=== PATIENT | female | born 1980 | race Caucasian/White ===

== ENCOUNTER 2017-08-03 21:55 | Emergency (ER) | payer MEDICAID, OTHER ==
[2017-08-03] MEDS: IBUPROFEN 800 MG TAB PO (23:47)
[2017-08-03] MEDS: METHOCARBAMOL 500 MG TAB PO (23:47)
[2017-08-03] MEDS: NORCO, ANEXSIA 5/325MG TABLET (HYDROcodone/ACETAMINOPHEN) PO (23:48)
== END 2017-08-04 00:04 | disposition home or self-care (01) ==
LOC: M ED 08-04 00:04
DX: M54.17 Radiculopathy, lumbosacral region (principal); M54.42 Lumbago with sciatica, left side
CPT/HCPCS: 99282

== ENCOUNTER → 2017-10-11 | Outpatient (REF) | payer MEDICAID ==
[2017-10-11 19:09] LABS: ALBUMIN 3.8 GM/DL (3.2-5.2); ALKALINE PHOSPHATASE 82 U/L (45-117); ALT/SGPT 20 U/L (12-78); ANION GAP 6 MEQ/L (8-16); AST/SGOT 15 U/L (7-37); BILIRUBIN,TOTAL 0.4 MG/DL (0.2-1.0); BLOOD UREA NITROGEN 16 MG/DL (7-18); CALCIUM LEVEL 8.6 MG/DL (8.5-10.1); CARBON DIOXIDE LEVEL 28 MEQ/L (21-32); CHLORIDE LEVEL 107 MEQ/L (98-107); GLOMERULAR FILTRATION RATE > 60.0 (>60); GLUCOSE, FASTING 94 MG/DL (70-100); POTASSIUM SERUM 4.5 MEQ/L (3.5-5.1); SODIUM LEVEL 141 MEQ/L (136-145)
[2017-10-11 19:53] LABS: BASO % 0.5 % (0.0-1.0); EOS # 0.2 10^3/uL (0.0-0.50); EOS % 2.7 % (0.0-3.0); HEMATOCRIT 35.5 % (36.0-47.0); HEMOGLOBIN 11.8 g/dl (12.0-15.5); IMMATURE GRANULOCYTE % 0.5 % (0-3.0); LYMPH # 1.5 10^3/uL (1.5-4.5); MEAN CORPUSCULAR HEMOGLOBIN 28.1 pg (27.0-33.0); MEAN CORPUSCULAR HGB CONC 33.2 g/dl (32.0-36.5); MEAN CORPUSCULAR VOLUME 84.5 fl (80.0-96.0); MONO # 0.4 10^3/uL (0.0-0.8); MONO % 5.6 % (0.0-5.0); NEUTROPHILS # 4.6 10^3/uL (1.8-7.7); NEUTROPHILS % 68.7 % (36.0-66.0); PLATELET COUNT, AUTOMATED 243 10^3/uL (150-450); RED CELL DISTRIBUTION WIDTH 14.3 % (11.5-14.5); WHITE BLOOD COUNT 6.6 10^3/uL (4.0-10.0)
[2017-10-11 20:46] LABS: SLIDE REVIEW Report; SOURCE PERIPHERAL SMEAR
[2017-10-11 20:47] LABS: REASON FOR REVIEW RBC MORPHOLOGY
== END ==
LOC: M LAB REF 18:22
DX: R16.1 Splenomegaly, not elsewhere classified (principal)
CPT/HCPCS: 80053

== ENCOUNTER 2017-12-01 18:00 | Emergency (ER) | payer MEDICAID, OTHER, SELFPAY ==
[2017-12-01] MEDS: ONDANSETRON 4MG/2ML VIAL (J2405) IV (19:29)
[2017-12-01] MEDS: CLINDAMYCIN 900 MG in APPROPRIATE DILUENT 1 EA IV (19:29)
[2017-12-01] MEDS: NS 1,000 ML IV (19:29)
[2017-12-01] MEDS: KETOROLAC 30 MG/ML VIAL (J1885) IV (19:30)
[2017-12-01 19:42] LABS: BASO % 0.4 % (0.0-1.0); EOS # 0.2 10^3/uL (0.0-0.50); EOS % 2.3 % (0.0-3.0); HEMATOCRIT 37.1 % (36.0-47.0); HEMOGLOBIN 12.5 g/dl (12.0-15.5); IMMATURE GRANULOCYTE % 0.4 % (0-3.0); LYMPH # 1.7 10^3/uL (1.5-4.5); LYMPH % 20.4 % (24.0-44.0); MEAN CORPUSCULAR HEMOGLOBIN 28.9 pg (27.0-33.0); MEAN CORPUSCULAR HGB CONC 33.7 g/dl (32.0-36.5); MEAN CORPUSCULAR VOLUME 85.7 fl (80.0-96.0); MONO # 0.5 10^3/uL (0.0-0.8); MONO % 6.5 % (0.0-5.0); NEUTROPHILS # 5.9 10^3/uL (1.8-7.7); PLATELET COUNT, AUTOMATED 261 10^3/uL (150-450); RED BLOOD COUNT 4.33 10^6/uL (4.00-5.40); WHITE BLOOD COUNT 8.4 10^3/uL (4.0-10.0)
[2017-12-01 19:54] LABS: ANION GAP 6 MEQ/L (8-16); BLOOD UREA NITROGEN 17 MG/DL (7-18); C REACTIVE PROTEIN QUANTITATIV 0.66 MG/DL (0.00-0.30); CALCIUM LEVEL 8.7 MG/DL (8.5-10.1); CARBON DIOXIDE LEVEL 29 MEQ/L (21-32); CHLORIDE LEVEL 107 MEQ/L (98-107); CREATININE FOR GFR 1.08 MG/DL (0.55-1.30); GLOMERULAR FILTRATION RATE > 60.0 (>60); GLUCOSE, FASTING 100 MG/DL (70-100); POTASSIUM SERUM 4.2 MEQ/L (3.5-5.1); SODIUM LEVEL 142 MEQ/L (136-145)
[2017-12-01] MEDS ORDERED: ISOVUE-370 76% 100ML VIAL (Q9967) As Ordered (20:00)
[2017-12-01] MEDS: OXYCODONE/APAP 5MG/325MG(BULK FOR ED) 1 TABLET PO (21:53)
== END 2017-12-01 21:56 | disposition home or self-care (01) ==
LOC: M ED 18:00
DX: K04.7 Periapical abscess without sinus (principal)
CPT/HCPCS: J2405

== ENCOUNTER → 2017-12-14 | Outpatient (REF) | payer MEDICAID, OTHER | LOC: M LAB REF 10:44 | DX: R16.1 Splenomegaly, not elsewhere classified (principal) ==

== ENCOUNTER → 2018-01-03 | Outpatient (REF) | payer MEDICAID ==
[2018-01-03 20:20] LABS: ESTIMATED AVERAGE GLUCOSE 88 MG/DL (60-110); HEMOGLOBIN A1c 4.7 %
[2018-01-03 20:25] LABS: CHOLESTEROL LEVEL 128 MG/DL (<200); HDL CHOLESTEROL 27 MG/DL (>40); LDL CHOLESTEROL 34 MG/DL (<100); NON-HDL-C 101 MG/DL; TRIGLYCERIDES LEVEL 335 MG/DL (<150)
== END ==
LOC: M LAB REF 18:33
DX: E66.01 Morbid (severe) obesity due to excess calories (principal)
CPT/HCPCS: 84443

== ENCOUNTER → 2018-01-17 | Outpatient (CLI) | payer MEDICARE, OTHER ==
[~2018-01-17] MED LIST: GASTROGRAFIN SOLUTION 30ML (Q9963) As Ordered; ISOVUE-370 76% 100ML VIAL (Q9967) As Ordered
== END ==
LOC: M RAD 07:51
DX: R16.1 Splenomegaly, not elsewhere classified (principal)
CPT/HCPCS: Q9963

== ENCOUNTER → 2018-05-22 | Outpatient (REF) | payer OTHER, MEDICAID ==
[~2018-05-22] MED LIST changes: +APAP325T4 PO; +CLEO300C2 PO; -GASTROGRAFIN SOLUTION 30ML (Q9963) As Ordered; +IBUP80TA PO; -ISOVUE-370 76% 100ML VIAL (Q9967) As Ordered; +KETO10TAB PO; +MOTR200T44 PO; +NORCOTAB PO; +PERC5TAB12 PO; +PERCOCET PO; +ROBA500T PO; +VITAPRTA PO; +ZONI25CA2 PO; +ZONI50CA3 PO
== END ==
LOC: M LAB REF 11:55
PROVIDERS: ATTEND Internal Medicine
DX: N39.0 Urinary tract infection, site not specified (principal)

== ENCOUNTER 2022-03-29 19:25 | Emergency (ER) | payer MEDICAID, OTHER ==
[~2022-03-29] VITALS: Ht 152.4 cm; Wt 136.3 kg
[~2022-03-29 19:25] MED LIST changes: +HYDR-3715 PO; -NORCOTAB PO; +ZONI25CA13 PO; -ZONI25CA2 PO; +ZONI50CA11 PO; -ZONI50CA3 PO
[2022-03-29 23:28] LABS: LIPASE 46 U/L (12-53)
[2022-03-29 23:30] LABS: ALBUMIN 3.8 G/DL (3.2-5.2); ALKALINE PHOSPHATASE 85 U/L (46-116); ALT/SGPT 20 U/L (7.0-40); AST/SGOT 34 U/L (<34); BILIRUBIN,DIRECT < 0.1 MG/DL (<0.4); BILIRUBIN,TOTAL 0.4 MG/DL (0.3-1.2); BLOOD UREA NITROGEN 22 MG/DL (9-23); CALCIUM LEVEL 9.5 MG/DL (8.5-10.1); CARBON DIOXIDE LEVEL 23 MMOL/L (20-31); CHLORIDE LEVEL 104 MMOL/L (98-107); GLOMERULAR FILTRATION RATE > 60.0 (>58); GLUCOSE, FASTING 128 MG/DL (60-100); POTASSIUM SERUM 4.3 MMOL/L (3.5-5.1); SODIUM LEVEL 140 MMOL/L (136-145); TOTAL PROTEIN 7.2 G/DL (5.7-8.2)
[2022-03-29 23:46] LABS: BASO % 0.3 % (0.0-1.0); EOS # 0.1 10^3/uL (0.0-0.5); EOS % 1.1 % (0.0-3.0); HEMATOCRIT 36.9 % (36.0-47.0); HEMOGLOBIN 11.9 g/dl (12.0-15.5); LYMPH # 3.3 10^3/uL (1.5-5.0); LYMPH % 25.3 % (24.0-44.0); MEAN CORPUSCULAR HEMOGLOBIN 28.6 pg (27.0-33.0); MEAN CORPUSCULAR HGB CONC 32.2 g/dl (32.0-36.5); MEAN CORPUSCULAR VOLUME 88.7 fl (80.0-96.0); MONO # 0.9 10^3/uL (0.0-0.8); MONO % 6.9 % (2.0-8.0); NEUTROPHILS # 8.6 10^3/uL (1.5-8.5); PLATELET COUNT, AUTOMATED 471 10^3/uL (150-450); RED BLOOD COUNT 4.16 10^6/uL (4.00-5.40); WHITE BLOOD COUNT 13.1 10^3/uL (4.0-10.0)
[2022-03-30 00:02] LABS: HCG, SERUM QUALITATIVE NEGATIVE (NEGATIVE)
[2022-03-30] MEDS ORDERED: ONDANSETRON 4MG ORAL DISINTEGRATING TAB PO ONE (00:25)
[2022-03-30] MEDS ORDERED: PRED20TA PO (03:39)
[2022-03-30] MEDS ORDERED: CYMB1CAP4 PO (03:39)
[2022-03-30] MEDS ORDERED: OXYCODONE/APAP 5MG/325MG(HOME DOSE PACK) PO ONE (03:40)
[2022-03-30] MEDS ORDERED: predniSONE 20 MG TAB PO ONE (03:40)
[2022-03-30] MEDS ORDERED: DULoxetine 20MG CAP (CYMBALTA) PO ONE (03:40)
[2022-03-30 03:42] VITALS: BP 132/88
== END 2022-03-30 04:01 | disposition home or self-care (01) ==
LOC: M ED 19:25
DX: Z76.0 Encounter for issue of repeat prescription (principal); M06.9 Rheumatoid arthritis, unspecified; F32.A Depression, unspecified; Z88.0 Allergy status to penicillin; Z79.82 Long term (current) use of aspirin; Z79.83 Long term (current) use of bisphosphonates; Z79.899 Other long term (current) drug therapy
CPT/HCPCS: 36415; 80048; 80076; 83690; 84703; 85025; 87428; 87880; 93005; 99284; J7512

== ENCOUNTER → 2022-04-20 | Outpatient (REF) | payer MEDICAID ==
[~2022-04-20] MED LIST changes: +CYMB1CAP4 PO; +PRED20TA PO
[2022-04-20 17:23] LABS: BASO % 0.4 % (0.0-1.0); EOS # 0.2 10^3/uL (0.0-0.5); EOS % 3.3 % (0.0-3.0); HEMATOCRIT 30.7 % (36.0-47.0); HEMOGLOBIN 9.3 g/dl (12.0-15.5); LYMPH # 1.2 10^3/uL (1.5-5.0); LYMPH % 23.2 % (24.0-44.0); MEAN CORPUSCULAR HEMOGLOBIN 27.4 pg (27.0-33.0); MEAN CORPUSCULAR HGB CONC 30.3 g/dl (32.0-36.5); MEAN CORPUSCULAR VOLUME 90.3 fl (80.0-96.0); MONO # 0.4 10^3/uL (0.0-0.8); NEUTROPHILS # 3.4 10^3/uL (1.5-8.5); NEUTROPHILS % 65.9 % (36.0-66.0); PLATELET COUNT, AUTOMATED 351 10^3/uL (150-450); WHITE BLOOD COUNT 5.1 10^3/uL (4.0-10.0)
[2022-04-20 17:53] LABS: ALBUMIN 3.2 G/DL (3.2-5.2); ALKALINE PHOSPHATASE 83 U/L (46-116); ALT/SGPT 21 U/L (7.0-40); AST/SGOT 24 U/L (<34); BILIRUBIN,TOTAL 0.8 MG/DL (0.3-1.2); BLOOD UREA NITROGEN 9 MG/DL (9-23); CALCIUM LEVEL 8.8 MG/DL (8.5-10.1); CARBON DIOXIDE LEVEL 25 MMOL/L (20-31); CHLORIDE LEVEL 102 MMOL/L (98-107); CREATININE FOR GFR 0.77 MG/DL (0.55-1.30); GLOMERULAR FILTRATION RATE > 60.0 (>58); GLUCOSE, FASTING 108 MG/DL (60-100); POTASSIUM SERUM 3.5 MMOL/L (3.5-5.1); RHEUMATOID FACTOR QUANT 66.3 IU/ML (<14); SODIUM LEVEL 139 MMOL/L (136-145); TOTAL PROTEIN 6.5 G/DL (5.7-8.2)
[2022-04-20 18:19] LABS: HIV 1&2 SCREEN CENTAUR NEGATIVE (NEGATIVE)
[2022-04-20 18:26] LABS: ERYTHROCYTE SEDIMENTATION RATE 51 mm/hr (0-20)
[2022-04-20 18:28] LABS: HEPATITIS C VIRUS ABY INDEX 0.1 INDEX (<0.8)
== END ==
LOC: M LAB REF 16:18
PROVIDERS: ATTEND Physician Assistant
DX: M06.9 Rheumatoid arthritis, unspecified (principal); M25.50 Pain in unspecified joint; R20.2 Paresthesia of skin; Z11.4 Encounter for screening for human immunodeficiency virus [HIV]; Z11.59 Encounter for screening for other viral diseases

== ENCOUNTER → 2022-05-20 | Outpatient (CLI) | payer MEDICAID | LOC: M WUC 13:32 | PROVIDERS: ATTEND Physician Assistant | DX: M17.11 Unilateral primary osteoarthritis, right knee (principal) ==

== ENCOUNTER 2022-06-05 14:58 | Inpatient (IN) | payer MEDICAID, OTHER ==
[~2022-06-05] VITALS: Ht 152.4 cm; Wt 122.5 kg
[2022-06-05] MEDS ORDERED: ADV250INH PO (15:14)
[2022-06-05] MEDS ORDERED: OXYC20TA2 PO (15:14)
[2022-06-05] MEDS ORDERED: ZOLP5TAB PO (15:14)
[2022-06-05] MEDS ORDERED: PREG200C PO (15:14)
[2022-06-05] MEDS: HYDROMORPHONE HCL 0.5 MG/ 0.5 ML SYRINGE IV PRN ×2 (16:05→20:53)
[2022-06-05 16:19] LABS: BASO % 0.3 % (0.0-1.0); EOS # 0.1 10^3/uL (0.0-0.5); EOS % 1.5 % (0.0-3.0); HEMATOCRIT 32.2 % (36.0-47.0); HEMOGLOBIN 10.2 g/dl (12.0-15.5); LYMPH # 1.1 10^3/uL (1.5-5.0); LYMPH % 16.7 % (24.0-44.0); MEAN CORPUSCULAR HEMOGLOBIN 27.4 pg (27.0-33.0); MEAN CORPUSCULAR HGB CONC 31.7 g/dl (32.0-36.5); MEAN CORPUSCULAR VOLUME 86.6 fl (80.0-96.0); MONO # 0.3 10^3/uL (0.0-0.8); MONO % 4.7 % (2.0-8.0); NEUTROPHILS % 76.3 % (36.0-66.0); RED BLOOD COUNT 3.72 10^6/uL (4.00-5.40); WHITE BLOOD COUNT 6.6 10^3/uL (4.0-10.0)
[2022-06-05 16:39] LABS: LIPASE 27 U/L (12-53)
[2022-06-05 16:40] LABS: INR 0.97; PARTIAL THROMBOPLASTIN TIME 24.1 SECONDS (24.8-34.2); PROTHROMBIN TIME 13.1 SECONDS (12.5-14.5)
[2022-06-05 16:41] LABS: ALBUMIN 3.3 G/DL (3.2-5.2); ALKALINE PHOSPHATASE 83 U/L (46-116); ALT/SGPT 16 U/L (7.0-40); AST/SGOT 39 U/L (<34); BILIRUBIN,DIRECT 0.2 MG/DL (<0.4); BILIRUBIN,TOTAL 0.6 MG/DL (0.3-1.2); BLOOD UREA NITROGEN 10 MG/DL (9-23); CALCIUM LEVEL 8.4 MG/DL (8.5-10.1); CARBON DIOXIDE LEVEL 25 MMOL/L (20-31); CHLORIDE LEVEL 107 MMOL/L (98-107); CREATININE FOR GFR 0.66 MG/DL (0.55-1.30); GLOMERULAR FILTRATION RATE > 60.0 (>58); GLUCOSE, FASTING 104 MG/DL (60-100); POTASSIUM SERUM 4.5 MMOL/L (3.5-5.1); SODIUM LEVEL 141 MMOL/L (136-145); TOTAL PROTEIN 7.3 G/DL (5.7-8.2)
[2022-06-05 16:42] LABS: RSV AMPLIFICATION NEGATIVE (NEGATIVE)
[2022-06-05] MEDS ORDERED: ALBU8.5H PO (20:16)
[2022-06-05] MEDS ORDERED: DULO1CAP5 PO (20:16)
[2022-06-05] MEDS ORDERED: FLUTISP (20:16)
[2022-06-05] MEDS ORDERED: HOME MED LIST COMPLETE! XX SCH (20:20)
[2022-06-05] MEDS ORDERED: ACETAMINOPHEN TAB 650MG DOSE (2X325MG) PO PRN (22:40)
[2022-06-05 23:03] VITALS: BP 128/84
[2022-06-05] MEDS: KETOROLAC 30 MG/ML 1ML VIAL IV PRN (23:25)
[2022-06-06] MEDS ORDERED: ALBUTEROL 90 MCG/ACT 8GM HFA INHALER INH PRN (01:00)
[2022-06-06 02:59] LABS: APPEARANCE, URINE HAZY (CLEAR); BACTERIA, URINE AUTO NEGATIVE (NEGATIVE); BILIRUBIN, URINE AUTO NEGATIVE (NEGATIVE); BLOOD, URINE BLOOD NEGATIVE (NEGATIVE); COLOR, URINE YELLOW (YELLOW); GLUCOSE, URINE (UA) AUTO 1+ mg/dL (NEGATIVE); KETONE, URINE AUTO TRACE mg/dL (NEGATIVE); LEUKOCYTE ESTERASE, URINE AUTO NEGATIVE (NEGATIVE); MUCUS, URINE SMALL (NEGATIVE); NITRITE, URINE AUTO NEGATIVE (NEGATIVE); PROTEIN, URINE AUTO 2+ mg/dL (NEGATIVE); RBC, URINE AUTO 20 /HPF (0-3); SPECIFIC GRAVITY URINE AUTO 1.021 (1.002-1.035); SQUAMOUS EPITHELIAL CELL UR AU 5 /HPF (0-6); WBC, URINE AUTO 4 /HPF (0-3)
[2022-06-06 06:26] VITALS: BP 123/71
[2022-06-06 06:51] LABS: BLOOD UREA NITROGEN 15 MG/DL (9-23); CALCIUM LEVEL 8.5 MG/DL (8.5-10.1); CARBON DIOXIDE LEVEL 26 MMOL/L (20-31); CHLORIDE LEVEL 107 MMOL/L (98-107); CREATININE FOR GFR 0.66 MG/DL (0.55-1.30); GLOMERULAR FILTRATION RATE > 60.0 (>58); GLUCOSE, FASTING 158 MG/DL (60-100); POTASSIUM SERUM 4.5 MMOL/L (3.5-5.1); SODIUM LEVEL 141 MMOL/L (136-145)
[2022-06-06] MEDS: LIDOCAINE 5% (LIDODERM) PATCH TOP SCH (08:38)
[2022-06-06] MEDS: ENOXAPARIN 40MG/0.4ML SYRINGE (J1650 PER 10MG) SC SCH (08:38)
[2022-06-06] MEDS: KETOROLAC 30 MG/ML 1ML VIAL IV PRN ×3 (08:44→20:48)
[2022-06-06] MEDS: methylPREDNISolone 40MG 1ML VIAL IV SCH (13:02)
[2022-06-06 14:00] VITALS: BP 118/69
[2022-06-06 18:53] LABS: RHEUMATOID FACTOR QUANT 81.2 IU/ML (<14)
[2022-06-06 20:00] VITALS: BP 120/68
[2022-06-06] MEDS: DOCUSATE SODIUM 100MG CAPSULE PO SCH (20:48)
[2022-06-06] MEDS: SENOKOT S TAB PO PRN (20:48)
[2022-06-07] MEDS: KETOROLAC 30 MG/ML 1ML VIAL IV PRN ×3 (02:23→19:54)
[2022-06-07 06:00] VITALS: BP 119/64
[2022-06-07 06:37] LABS: HEMATOCRIT 27.3 % (36.0-47.0); HEMOGLOBIN 8.4 g/dl (12.0-15.5); LYMPH # 0.9 10^3/uL (1.5-5.0); LYMPH % 13.1 % (24.0-44.0); MEAN CORPUSCULAR HEMOGLOBIN 27.2 pg (27.0-33.0); MEAN CORPUSCULAR HGB CONC 30.8 g/dl (32.0-36.5); MEAN CORPUSCULAR VOLUME 88.3 fl (80.0-96.0); MONO # 0.4 10^3/uL (0.0-0.8); MONO % 5.3 % (2.0-8.0); NEUTROPHILS # 5.5 10^3/uL (1.5-8.5); NEUTROPHILS % 80.7 % (36.0-66.0); PLATELET COUNT, AUTOMATED 261 10^3/uL (150-450); RED BLOOD COUNT 3.09 10^6/uL (4.00-5.40); WHITE BLOOD COUNT 6.8 10^3/uL (4.0-10.0)
[2022-06-07 06:59] LABS: ALBUMIN 2.8 G/DL (3.2-5.2); ALKALINE PHOSPHATASE 62 U/L (46-116); ALT/SGPT 9 U/L (7.0-40); AST/SGOT < 8 U/L (<34); BILIRUBIN,TOTAL 0.3 MG/DL (0.3-1.2); BLOOD UREA NITROGEN 27 MG/DL (9-23); CALCIUM LEVEL 8.3 MG/DL (8.5-10.1); CARBON DIOXIDE LEVEL 26 MMOL/L (20-31); CHLORIDE LEVEL 110 MMOL/L (98-107); CREATININE FOR GFR 0.73 MG/DL (0.55-1.30); GLOMERULAR FILTRATION RATE > 60.0 (>58); GLUCOSE, FASTING 127 MG/DL (60-100); MAGNESIUM LEVEL 2.1 MG/DL (1.8-2.4); POTASSIUM SERUM 4.5 MMOL/L (3.5-5.1); SODIUM LEVEL 144 MMOL/L (136-145); TOTAL PROTEIN 6.1 G/DL (5.7-8.2)
[2022-06-07] MEDS: MIRALAX *UNIT DOSE* 17GM PACKET PO SCH (09:33)
[2022-06-07] MEDS: DOCUSATE SODIUM 100MG CAPSULE PO SCH ×2 (09:33→19:54)
[2022-06-07] MEDS: LIDOCAINE 5% (LIDODERM) PATCH TOP SCH (09:33)
[2022-06-07] MEDS: PANTOPRAZOLE 40MG TAB (PROTONIX) PO SCH (09:34)
[2022-06-07] MEDS: ENOXAPARIN 40MG/0.4ML SYRINGE (J1650 PER 10MG) SC SCH (09:34)
[2022-06-07] MEDS: methylPREDNISolone 40MG 1ML VIAL IV SCH (11:55)
[2022-06-07] MEDS ORDERED: LORazepam 1 MG TAB PO ONE (12:10)
[2022-06-07 14:00] VITALS: BP 113/64
[2022-06-07 20:00] VITALS: BP 122/65
[2022-06-08 06:07] VITALS: BP 121/68
[2022-06-08 07:35] LABS: BASO % 0.3 % (0.0-1.0); EOS % 0.1 % (0.0-3.0); HEMATOCRIT 28.6 % (36.0-47.0); HEMOGLOBIN 8.7 g/dl (12.0-15.5); LYMPH # 1.5 10^3/uL (1.5-5.0); LYMPH % 21.3 % (24.0-44.0); MEAN CORPUSCULAR HEMOGLOBIN 26.9 pg (27.0-33.0); MEAN CORPUSCULAR HGB CONC 30.4 g/dl (32.0-36.5); MEAN CORPUSCULAR VOLUME 88.5 fl (80.0-96.0); MONO # 0.4 10^3/uL (0.0-0.8); MONO % 6.3 % (2.0-8.0); NEUTROPHILS # 4.8 10^3/uL (1.5-8.5); NEUTROPHILS % 70.5 % (36.0-66.0); PLATELET COUNT, AUTOMATED 252 10^3/uL (150-450); RED BLOOD COUNT 3.23 10^6/uL (4.00-5.40); WHITE BLOOD COUNT 6.8 10^3/uL (4.0-10.0)
[2022-06-08 08:02] LABS: ALBUMIN 2.8 G/DL (3.2-5.2); ALKALINE PHOSPHATASE 63 U/L (46-116); ALT/SGPT 12 U/L (7.0-40); AST/SGOT < 8 U/L (<34); BILIRUBIN,TOTAL 0.2 MG/DL (0.3-1.2); BLOOD UREA NITROGEN 29 MG/DL (9-23); CALCIUM LEVEL 8.2 MG/DL (8.5-10.1); CARBON DIOXIDE LEVEL 26 MMOL/L (20-31); CHLORIDE LEVEL 111 MMOL/L (98-107); CREATININE FOR GFR 0.71 MG/DL (0.55-1.30); GLOMERULAR FILTRATION RATE > 60.0 (>58); GLUCOSE, FASTING 106 MG/DL (60-100); MAGNESIUM LEVEL 1.9 MG/DL (1.8-2.4); SODIUM LEVEL 145 MMOL/L (136-145); TOTAL PROTEIN 5.9 G/DL (5.7-8.2)
[2022-06-08] MEDS: DOCUSATE SODIUM 100MG CAPSULE PO SCH ×2 (08:40→20:09)
[2022-06-08] MEDS: MIRALAX *UNIT DOSE* 17GM PACKET PO SCH (08:40)
[2022-06-08] MEDS ORDERED: LORazepam 1 MG TAB PO ONE (09:15)
[2022-06-08] MEDS: KETOROLAC 30 MG/ML 1ML VIAL IV PRN ×2 (09:36→23:02)
[2022-06-08] MEDS: PANTOPRAZOLE 40MG TAB (PROTONIX) PO SCH (09:36)
[2022-06-08] MEDS: ENOXAPARIN 40MG/0.4ML SYRINGE (J1650 PER 10MG) SC SCH (09:36)
[2022-06-08] MEDS ORDERED: PROHANCE 279.3MG/ML 5ML VIAL As Ordered ONE (10:46)
[2022-06-08] MEDS ORDERED: PROHANCE 279.3MG/ML 15ML VIAL As Ordered ONE (10:46)
[2022-06-08] MEDS: LIDOCAINE 5% (LIDODERM) PATCH TOP SCH ×2 (12:24→18:05)
[2022-06-08] MEDS: methylPREDNISolone 40MG 1ML VIAL IV SCH (12:24)
[2022-06-08 14:00] VITALS: BP 131/71
[2022-06-08 19:06] LABS: CPK CREATINE PHOSPHOKINASE < 15 U/L (34-145); RHEUMATOID FACTOR QUANT 81.4 IU/ML (<14)
[2022-06-08 20:00] VITALS: BP 139/69
[2022-06-09 05:43] VITALS: BP 123/71
[2022-06-09 06:13] LABS: BASO % 0.1 % (0.0-1.0); EOS % 0.1 % (0.0-3.0); HEMATOCRIT 29.6 % (36.0-47.0); HEMOGLOBIN 9.1 g/dl (12.0-15.5); LYMPH # 1.6 10^3/uL (1.5-5.0); LYMPH % 18.2 % (24.0-44.0); MEAN CORPUSCULAR HEMOGLOBIN 26.6 pg (27.0-33.0); MEAN CORPUSCULAR HGB CONC 30.7 g/dl (32.0-36.5); MEAN CORPUSCULAR VOLUME 86.5 fl (80.0-96.0); MONO # 0.5 10^3/uL (0.0-0.8); MONO % 6.1 % (2.0-8.0); NEUTROPHILS # 6.4 10^3/uL (1.5-8.5); NEUTROPHILS % 73.9 % (36.0-66.0); PLATELET COUNT, AUTOMATED 274 10^3/uL (150-450); RED BLOOD COUNT 3.42 10^6/uL (4.00-5.40); WHITE BLOOD COUNT 8.7 10^3/uL (4.0-10.0)
[2022-06-09 06:40] LABS: ALKALINE PHOSPHATASE 66 U/L (46-116); ALT/SGPT < 9 U/L (7.0-40); AST/SGOT 9 U/L (<34); BILIRUBIN,TOTAL 0.2 MG/DL (0.3-1.2); BLOOD UREA NITROGEN 29 MG/DL (9-23); CALCIUM LEVEL 8.6 MG/DL (8.5-10.1); CARBON DIOXIDE LEVEL 26 MMOL/L (20-31); CHLORIDE LEVEL 107 MMOL/L (98-107); CREATININE FOR GFR 0.79 MG/DL (0.55-1.30); GLOMERULAR FILTRATION RATE > 60.0 (>58); GLUCOSE, FASTING 93 MG/DL (60-100); POTASSIUM SERUM 4.3 MMOL/L (3.5-5.1); SODIUM LEVEL 141 MMOL/L (136-145); TOTAL PROTEIN 6.1 G/DL (5.7-8.2)
[2022-06-09] MEDS: DOCUSATE SODIUM 100MG CAPSULE PO SCH ×2 (08:37→21:38)
[2022-06-09] MEDS: PANTOPRAZOLE 40MG TAB (PROTONIX) PO SCH (08:37)
[2022-06-09] MEDS: MIRALAX *UNIT DOSE* 17GM PACKET PO SCH (08:37)
[2022-06-09] MEDS: LIDOCAINE 5% (LIDODERM) PATCH TOP SCH (08:38)
[2022-06-09] MEDS: methylPREDNISolone 40MG 1ML VIAL IV SCH (12:24)
[2022-06-09 13:06] LABS: APPEARANCE, CSF CLEAR (CLEAR); COLOR, CSF COLORLESS (COLORLESS); CSF TUBE# CELL CNT TUBE 1
[2022-06-09 13:08] LABS: APPEARANCE, CSF CLEAR (CLEAR); COLOR, CSF COLORLESS (COLORLESS); CSF TUBE# CELL CNT TUBE 4
[2022-06-09 13:34] LABS: CSF TUBE# TP TUBE 2; TOTAL PROTEIN,CSF 32.1 MG/DL (15-45)
[2022-06-09 13:37] LABS: CSF TUBE# GLU TUBE 2
[2022-06-09 14:00] VITALS: BP 116/73
[2022-06-09 15:00] VITALS: BP 118/73
[2022-06-09] MEDS: KETOROLAC 30 MG/ML 1ML VIAL IV PRN (16:15)
[2022-06-09 20:00] VITALS: BP 117/72
[2022-06-09 23:07] LABS: ANTI DNASE B TITER 250 U/mL (0-120); ANTINUCLEAR ANTIBODIES DIRECT Negative (Negative); COPPER PLASMA 176 ug/dL (80-158); SJOGREN'S ANTI SS-A <0.2 AI (0.0-0.9); SJOGREN'S ANTI SS-B <0.2 AI (0.0-0.9); VITAMIN B1 LEVEL WHOLE BLOOD 112.3 nmol/L (66.5-200.0)
[2022-06-10] MEDS: KETOROLAC 30 MG/ML 1ML VIAL IV PRN ×3 (00:41→22:40)
[2022-06-10 06:39] VITALS: BP 114/73
[2022-06-10 07:13] LABS: BASO % 0.2 % (0.0-1.0); EOS % 0.3 % (0.0-3.0); HEMATOCRIT 30.9 % (36.0-47.0); HEMOGLOBIN 9.5 g/dl (12.0-15.5); LYMPH # 1.7 10^3/uL (1.5-5.0); LYMPH % 19.3 % (24.0-44.0); MEAN CORPUSCULAR HEMOGLOBIN 26.5 pg (27.0-33.0); MEAN CORPUSCULAR HGB CONC 30.7 g/dl (32.0-36.5); MEAN CORPUSCULAR VOLUME 86.3 fl (80.0-96.0); MONO # 0.5 10^3/uL (0.0-0.8); MONO % 5.9 % (2.0-8.0); NEUTROPHILS # 6.4 10^3/uL (1.5-8.5); NEUTROPHILS % 72.8 % (36.0-66.0); PLATELET COUNT, AUTOMATED 277 10^3/uL (150-450); RED BLOOD COUNT 3.58 10^6/uL (4.00-5.40); WHITE BLOOD COUNT 8.9 10^3/uL (4.0-10.0)
[2022-06-10 07:39] LABS: ALKALINE PHOSPHATASE 68 U/L (46-116); ALT/SGPT 10 U/L (7.0-40); AST/SGOT < 8 U/L (<34); BILIRUBIN,TOTAL 0.3 MG/DL (0.3-1.2); BLOOD UREA NITROGEN 30 MG/DL (9-23); CALCIUM LEVEL 8.4 MG/DL (8.5-10.1); CARBON DIOXIDE LEVEL 30 MMOL/L (20-31); CHLORIDE LEVEL 107 MMOL/L (98-107); CREATININE FOR GFR 0.75 MG/DL (0.55-1.30); GLOMERULAR FILTRATION RATE > 60.0 (>58); GLUCOSE, FASTING 83 MG/DL (60-100); MAGNESIUM LEVEL 2.1 MG/DL (1.8-2.4); POTASSIUM SERUM 4.2 MMOL/L (3.5-5.1); SODIUM LEVEL 142 MMOL/L (136-145)
[2022-06-10] MEDS: MIRALAX *UNIT DOSE* 17GM PACKET PO SCH (08:21)
[2022-06-10] MEDS: DOCUSATE SODIUM 100MG CAPSULE PO SCH ×3 (08:21→20:10)
[2022-06-10] MEDS: LIDOCAINE 5% (LIDODERM) PATCH TOP SCH (08:21)
[2022-06-10] MEDS: PANTOPRAZOLE 40MG TAB (PROTONIX) PO SCH (08:22)
[2022-06-10] MEDS: ENOXAPARIN 40MG/0.4ML SYRINGE (J1650 PER 10MG) SC SCH (09:56)
[2022-06-10] MEDS: methylPREDNISolone 40MG 1ML VIAL IV SCH (11:42)
[2022-06-10 14:00] VITALS: BP 138/91
[2022-06-10 20:40] VITALS: BP 105/61
[2022-06-10] MEDS ORDERED: GABAPENTIN 100 MG CAP PO SCH (21:00)
[2022-06-11 05:50] VITALS: BP 106/62
[2022-06-11 06:40] LABS: BASO % 0.2 % (0.0-1.0); EOS % 0.2 % (0.0-3.0); HEMATOCRIT 33.8 % (36.0-47.0); HEMOGLOBIN 10.4 g/dl (12.0-15.5); LYMPH # 1.9 10^3/uL (1.5-5.0); LYMPH % 14.3 % (24.0-44.0); MEAN CORPUSCULAR HEMOGLOBIN 27.1 pg (27.0-33.0); MEAN CORPUSCULAR HGB CONC 30.8 g/dl (32.0-36.5); MONO # 0.7 10^3/uL (0.0-0.8); MONO % 5.6 % (2.0-8.0); NEUTROPHILS # 10.3 10^3/uL (1.5-8.5); NEUTROPHILS % 78.5 % (36.0-66.0); PLATELET COUNT, AUTOMATED 331 10^3/uL (150-450); RED BLOOD COUNT 3.84 10^6/uL (4.00-5.40); WHITE BLOOD COUNT 13.1 10^3/uL (4.0-10.0)
[2022-06-11 06:59] LABS: ALBUMIN 3.1 G/DL (3.2-5.2); ALKALINE PHOSPHATASE 82 U/L (46-116); ALT/SGPT 10 U/L (7.0-40); AST/SGOT < 8 U/L (<34); BILIRUBIN,TOTAL 0.3 MG/DL (0.3-1.2); BLOOD UREA NITROGEN 33 MG/DL (9-23); CALCIUM LEVEL 8.7 MG/DL (8.5-10.1); CARBON DIOXIDE LEVEL 27 MMOL/L (20-31); CHLORIDE LEVEL 106 MMOL/L (98-107); CREATININE FOR GFR 0.76 MG/DL (0.55-1.30); GLOMERULAR FILTRATION RATE > 60.0 (>58); GLUCOSE, FASTING 125 MG/DL (60-100); MAGNESIUM LEVEL 2.1 MG/DL (1.8-2.4); POTASSIUM SERUM 4.1 MMOL/L (3.5-5.1); SODIUM LEVEL 141 MMOL/L (136-145); TOTAL PROTEIN 6.3 G/DL (5.7-8.2)
[2022-06-11 07:10] LABS: ERYTHROCYTE SEDIMENTATION RATE 36 mm/hr (0-20)
[2022-06-11] MEDS: MIRALAX *UNIT DOSE* 17GM PACKET PO SCH (08:43)
[2022-06-11] MEDS: LIDOCAINE 5% (LIDODERM) PATCH TOP SCH ×2 (08:47→08:50)
[2022-06-11] MEDS: PREGABALIN 100 MG CAP (LYRICA) PO SCH ×3 (08:47→20:25)
[2022-06-11] MEDS: ENOXAPARIN 40MG/0.4ML SYRINGE (J1650 PER 10MG) SC SCH (08:47)
[2022-06-11] MEDS: PANTOPRAZOLE 40MG TAB (PROTONIX) PO SCH (08:48)
[2022-06-11] MEDS: DOCUSATE SODIUM 100MG CAPSULE PO SCH ×2 (08:48→20:25)
[2022-06-11] MEDS: predniSONE 20 MG TAB PO SCH (08:48)
[2022-06-11] MEDS: KETOROLAC 30 MG/ML 1ML VIAL IV PRN (11:46)
[2022-06-11 15:00] VITALS: BP 137/79
[2022-06-11 20:00] VITALS: BP 135/79
[2022-06-11] MEDS ORDERED: oxyCODONE 5MG TAB PO ONE (23:00)
[2022-06-12 05:55] VITALS: BP 124/75
[2022-06-12 05:59] LABS: BASO % 0.2 % (0.0-1.0); EOS # 0.1 10^3/uL (0.0-0.5); EOS % 0.4 % (0.0-3.0); HEMOGLOBIN 9.8 g/dl (12.0-15.5); LYMPH # 2.4 10^3/uL (1.5-5.0); LYMPH % 19.3 % (24.0-44.0); MEAN CORPUSCULAR HEMOGLOBIN 26.6 pg (27.0-33.0); MEAN CORPUSCULAR HGB CONC 30.6 g/dl (32.0-36.5); MONO # 0.9 10^3/uL (0.0-0.8); MONO % 7.5 % (2.0-8.0); NEUTROPHILS # 8.7 10^3/uL (1.5-8.5); NEUTROPHILS % 70.9 % (36.0-66.0); PLATELET COUNT, AUTOMATED 319 10^3/uL (150-450); RED BLOOD COUNT 3.68 10^6/uL (4.00-5.40); WHITE BLOOD COUNT 12.3 10^3/uL (4.0-10.0)
[2022-06-12 06:25] LABS: ALBUMIN 3.1 G/DL (3.2-5.2); ALKALINE PHOSPHATASE 86 U/L (46-116); ALT/SGPT 9 U/L (7.0-40); AST/SGOT < 8 U/L (<34); BILIRUBIN,TOTAL 0.2 MG/DL (0.3-1.2); BLOOD UREA NITROGEN 27 MG/DL (9-23); CALCIUM LEVEL 8.3 MG/DL (8.5-10.1); CARBON DIOXIDE LEVEL 26 MMOL/L (20-31); CHLORIDE LEVEL 106 MMOL/L (98-107); CREATININE FOR GFR 0.71 MG/DL (0.55-1.30); GLOMERULAR FILTRATION RATE > 60.0 (>58); GLUCOSE, FASTING 105 MG/DL (60-100); MAGNESIUM LEVEL 1.8 MG/DL (1.8-2.4); POTASSIUM SERUM 4.2 MMOL/L (3.5-5.1); SODIUM LEVEL 140 MMOL/L (136-145); TOTAL PROTEIN 6.3 G/DL (5.7-8.2)
[2022-06-12] MEDS: MIRALAX *UNIT DOSE* 17GM PACKET PO SCH (09:00)
[2022-06-12] MEDS: LIDOCAINE 5% (LIDODERM) PATCH TOP SCH ×2 (09:16→12:08)
[2022-06-12] MEDS: ENOXAPARIN 40MG/0.4ML SYRINGE (J1650 PER 10MG) SC SCH (09:16)
[2022-06-12] MEDS: predniSONE 20 MG TAB PO SCH (09:16)
[2022-06-12] MEDS: PREGABALIN 100 MG CAP (LYRICA) PO SCH ×3 (09:16→20:30)
[2022-06-12] MEDS: DOCUSATE SODIUM 100MG CAPSULE PO SCH ×2 (09:17→20:30)
[2022-06-12] MEDS: PANTOPRAZOLE 40MG TAB (PROTONIX) PO SCH (09:17)
[2022-06-12 14:00] VITALS: BP 131/80
[2022-06-12] MEDS: oxyCODONE 5MG TAB PO SCH ×2 (15:06→20:31)
[2022-06-12 20:00] VITALS: BP 126/80
[2022-06-13 06:19] VITALS: BP 128/79
[2022-06-13 06:57] LABS: BASO % 0.3 % (0.0-1.0); EOS # 0.1 10^3/uL (0.0-0.5); EOS % 0.5 % (0.0-3.0); HEMATOCRIT 32.9 % (36.0-47.0); HEMOGLOBIN 10.3 g/dl (12.0-15.5); LYMPH # 3.1 10^3/uL (1.5-5.0); LYMPH % 20.5 % (24.0-44.0); MEAN CORPUSCULAR HGB CONC 31.3 g/dl (32.0-36.5); MEAN CORPUSCULAR VOLUME 86.1 fl (80.0-96.0); MONO # 1.1 10^3/uL (0.0-0.8); MONO % 7.4 % (2.0-8.0); NEUTROPHILS # 10.5 10^3/uL (1.5-8.5); NEUTROPHILS % 69.3 % (36.0-66.0); PLATELET COUNT, AUTOMATED 356 10^3/uL (150-450); RED BLOOD COUNT 3.82 10^6/uL (4.00-5.40); WHITE BLOOD COUNT 15.2 10^3/uL (4.0-10.0)
[2022-06-13 07:27] LABS: ALBUMIN 3.1 G/DL (3.2-5.2); ALKALINE PHOSPHATASE 83 U/L (46-116); ALT/SGPT < 9 U/L (7.0-40); AST/SGOT < 8 U/L (<34); BILIRUBIN,TOTAL 0.3 MG/DL (0.3-1.2); BLOOD UREA NITROGEN 25 MG/DL (9-23); CALCIUM LEVEL 8.3 MG/DL (8.5-10.1); CARBON DIOXIDE LEVEL 27 MMOL/L (20-31); CHLORIDE LEVEL 102 MMOL/L (98-107); GLOMERULAR FILTRATION RATE > 60.0 (>58); GLUCOSE, FASTING 100 MG/DL (60-100); MAGNESIUM LEVEL 1.7 MG/DL (1.8-2.4); POTASSIUM SERUM 3.7 MMOL/L (3.5-5.1); SODIUM LEVEL 136 MMOL/L (136-145); TOTAL PROTEIN 6.3 G/DL (5.7-8.2)
[2022-06-13] MEDS: ENOXAPARIN 40MG/0.4ML SYRINGE (J1650 PER 10MG) SC SCH (08:50)
[2022-06-13] MEDS: oxyCODONE 5MG TAB PO SCH ×3 (08:50→20:23)
[2022-06-13] MEDS: predniSONE 20 MG TAB PO SCH (08:51)
[2022-06-13] MEDS: DOCUSATE SODIUM 100MG CAPSULE PO SCH ×2 (08:51→20:22)
[2022-06-13] MEDS: PREGABALIN 100 MG CAP (LYRICA) PO SCH ×3 (08:51→20:22)
[2022-06-13] MEDS: MIRALAX *UNIT DOSE* 17GM PACKET PO SCH (08:51)
[2022-06-13] MEDS: PANTOPRAZOLE 40MG TAB (PROTONIX) PO SCH (08:51)
[2022-06-13] MEDS: LIDOCAINE 5% (LIDODERM) PATCH TOP SCH (12:24)
[2022-06-13] MEDS: SENOKOT S TAB PO PRN (20:29)
[2022-06-14 06:00] VITALS: BP 137/65
[2022-06-14 07:45] VITALS: BP 132/68
[2022-06-14] MEDS: MIRALAX *UNIT DOSE* 17GM PACKET PO SCH (09:00)
[2022-06-14] MEDS: DOCUSATE SODIUM 100MG CAPSULE PO SCH ×2 (09:04→20:40)
[2022-06-14] MEDS: predniSONE 20 MG TAB PO SCH (09:04)
[2022-06-14] MEDS: PANTOPRAZOLE 40MG TAB (PROTONIX) PO SCH (09:04)
[2022-06-14] MEDS: LIDOCAINE 5% (LIDODERM) PATCH TOP SCH (09:05)
[2022-06-14] MEDS: ENOXAPARIN 40MG/0.4ML SYRINGE (J1650 PER 10MG) SC SCH (09:06)
[2022-06-14] MEDS: PREGABALIN 100 MG CAP (LYRICA) PO SCH ×3 (09:46→20:40)
[2022-06-14] MEDS: oxyCODONE 5MG TAB PO SCH ×3 (09:47→20:43)
[2022-06-14 14:50] VITALS: BP 130/89
[2022-06-15 05:24] VITALS: BP 117/69
[2022-06-15] MEDS: MIRALAX *UNIT DOSE* 17GM PACKET PO SCH (09:00)
[2022-06-15] MEDS: ENOXAPARIN 40MG/0.4ML SYRINGE (J1650 PER 10MG) SC SCH (09:00)
[2022-06-15] MEDS: PANTOPRAZOLE 40MG TAB (PROTONIX) PO SCH (09:23)
[2022-06-15] MEDS: PREGABALIN 100 MG CAP (LYRICA) PO SCH (09:23)
[2022-06-15] MEDS: predniSONE 20 MG TAB PO SCH (09:23)
[2022-06-15] MEDS: DOCUSATE SODIUM 100MG CAPSULE PO SCH (09:23)
[2022-06-15] MEDS: LIDOCAINE 5% (LIDODERM) PATCH TOP SCH (09:24)
[2022-06-15] MEDS: oxyCODONE 5MG TAB PO SCH (09:24)
[2022-06-15] MEDS ORDERED: ACET1TAB55 PO (10:43)
[2022-06-15] MEDS ORDERED: OXYC20TA2 PO (10:43)
[2022-06-15] MEDS ORDERED: LIDO5TD TOP (10:43)
[2022-06-15] MEDS ORDERED: MIRA1POW3 PO (10:43)
[2022-06-15] MEDS ORDERED: COLA100C5 PO (10:43)
[2022-06-15] MEDS ORDERED: PRED20TA PO (10:44)
[2022-06-15] MEDS ORDERED: OXYB5TAB10 PO (10:44)
[2022-06-15] MEDS ORDERED: NARC1SPR NARES (10:48)
[2022-06-15] MEDS ORDERED: LIDO1CRE2 TOP (11:47)
[2022-06-15] MEDS ORDERED: MIRA3350 PO (11:47)
[2022-06-15] MEDS ORDERED: PRED10TA2 PO ×2 (17:50→17:53)
== END 2022-06-15 14:03 | disposition home or self-care (01) | DRG 40 ==
LOC: M ED 14:58 → M ED INP 20:16 → M MSPAV 23:02
PROVIDERS: ADMIT Internal Medicine; ATTEND Student in an Organized Health Care Education/Training Program
PROC: 009U3ZX Drainage of Spinal Canal, Percutaneous Approach, Diagnostic (ICD-10-PCS; principal; 2022-06-09 10:30)
DX: G82.20 Paraplegia, unspecified (principal); E87.20 Acidosis, unspecified; Z68.43 Body mass index [BMI] 50.0-59.9, adult; E66.01 Morbid (severe) obesity due to excess calories; J45.909 Unspecified asthma, uncomplicated; F32.A Depression, unspecified; M06.9 Rheumatoid arthritis, unspecified; G89.29 Other chronic pain; Z88.0 Allergy status to penicillin; Z79.899 Other long term (current) drug therapy; G62.9 Polyneuropathy, unspecified

== ENCOUNTER → 2022-07-29 | Outpatient (CLI) | payer OTHER, MEDICAID ==
[~2022-07-29] MED LIST changes: +ACET1TAB55 PO; +ADV250INH PO; +ALBU8.5H PO; +COLA100C5 PO; +DULO1CAP5 PO; +FLUT50SP17; +LIDO1CRE2 TOP; +LIDO5TD TOP; +MIRA1POW3 PO; +MIRA3350 PO; +NARC1SPR NARES; +OXYB5TAB10 PO; +OXYC20TA2 PO; +PRED10TA2 PO; +PREG200C PO; +ZOLP5TAB PO
== END ==
LOC: M SOG 08:09
PROVIDERS: ATTEND Orthopaedic Surgery
DX: M17.12 Unilateral primary osteoarthritis, left knee (principal)

== ENCOUNTER → 2022-08-03 | Outpatient (CLI) | payer MEDICAID, OTHER ==
[2022-08-03 14:32] LABS: BASO % 0.2 % (0.0-1.0); EOS # 0.1 10^3/uL (0.0-0.5); EOS % 2.2 % (0.0-3.0); HEMATOCRIT 28.1 % (36.0-47.0); HEMOGLOBIN 8.7 g/dl (12.0-15.5); LYMPH # 1.1 10^3/uL (1.5-5.0); LYMPH % 17.3 % (24.0-44.0); MEAN CORPUSCULAR HEMOGLOBIN 25.6 pg (27.0-33.0); MEAN CORPUSCULAR VOLUME 82.6 fl (80.0-96.0); MONO # 0.4 10^3/uL (0.0-0.8); MONO % 6.9 % (2.0-8.0); NEUTROPHILS # 4.6 10^3/uL (1.5-8.5); NEUTROPHILS % 72.9 % (36.0-66.0); PLATELET COUNT, AUTOMATED 287 10^3/uL (150-450); WHITE BLOOD COUNT 6.3 10^3/uL (4.0-10.0)
[2022-08-03 14:38] LABS: COMPLEMENT C3 167.3 MG/DL (90.0-170.0); IMMUNOGLOBULIN A 279.9 MG/DL (40-350); IMMUNOGLOBULIN G 1135 MG/DL (650-1600); IMMUNOGLOBULIN M 105.7 MG/DL (50-300)
[2022-08-03 14:39] LABS: ALBUMIN 3.2 G/DL (3.2-5.2); ALKALINE PHOSPHATASE 79 U/L (46-116); ALT/SGPT 17 U/L (7.0-40); AST/SGOT 20 U/L (<34); BILIRUBIN,TOTAL 0.6 MG/DL (0.3-1.2); BLOOD UREA NITROGEN 8 MG/DL (9-23); CALCIUM LEVEL 8.4 MG/DL (8.5-10.1); CARBON DIOXIDE LEVEL 26 MMOL/L (20-31); CHLORIDE LEVEL 102 MMOL/L (98-107); GLOMERULAR FILTRATION RATE > 60.0 (>58); GLUCOSE, FASTING 132 MG/DL (60-100); POTASSIUM SERUM 3.6 MMOL/L (3.5-5.1); SODIUM LEVEL 137 MMOL/L (136-145); TOTAL PROTEIN 6.3 G/DL (5.7-8.2)
[2022-08-03 14:59] LABS: HEPATITIS B SURFACE ANTIGEN NEGATIVE (NEGATIVE)
[2022-08-03 15:19] LABS: HEPATITIS B CORE ANTIBODY IGM NEGATIVE (NEGATIVE); HEPATITIS C VIRUS ABY INDEX 0.1 INDEX (<0.8)
[2022-08-03 15:21] LABS: ERYTHROCYTE SEDIMENTATION RATE 56 mm/hr (0-20)
== END ==
LOC: M RAD 12:18
PROVIDERS: ATTEND Internal Medicine Rheumatology
DX: M05.79 Rheumatoid arthritis with rheumatoid factor of multiple sites without organ or systems involvement (principal); R76.8 Other specified abnormal immunological findings in serum; R06.02 Shortness of breath; M35.00 Sjogren syndrome, unspecified; M19.041 Primary osteoarthritis, right hand; M19.042 Primary osteoarthritis, left hand

== ENCOUNTER → 2022-08-03 | Outpatient (CLI) | payer MEDICAID, OTHER ==
[~2022-08-03] MED LIST changes: +ONDA4TAB6 PO; +OXYC10TA12 PO; +PREG100CA PO
== END ==
LOC: M EKG 12:21
PROVIDERS: ATTEND Physician Assistant
DX: E66.01 Morbid (severe) obesity due to excess calories (principal); Z76.89 Persons encountering health services in other specified circumstances

== ENCOUNTER 2022-08-07 18:47 | Emergency (ER) | payer MEDICAID ==
[~2022-08-07] VITALS: Ht 152.4 cm; Wt 127.3 kg
[~2022-08-07 18:47] MED LIST changes: -ONDA4TAB6 PO; -OXYC10TA12 PO; -PREG100CA PO
[2022-08-07] MEDS ORDERED: NS 1,000 ML IV ONE (19:05)
[2022-08-07] MEDS ORDERED: KETOROLAC 30 MG/ML 1ML VIAL IV ONE ×2 (19:05→20:00)
[2022-08-07] MEDS ORDERED: ONDANSETRON 4MG 2ML VIAL IV ONE (19:05)
[2022-08-07] MEDS: MORPHINE 2 MG/ML 1ML VIAL IV PRN ×2 (19:37→23:29)
[2022-08-07 19:38] LABS: BASO % 0.3 % (0.0-1.0); EOS # 0.1 10^3/uL (0.0-0.5); EOS % 1.5 % (0.0-3.0); HEMATOCRIT 28.8 % (36.0-47.0); LYMPH # 1.3 10^3/uL (1.5-5.0); LYMPH % 21.5 % (24.0-44.0); MEAN CORPUSCULAR HEMOGLOBIN 26.2 pg (27.0-33.0); MEAN CORPUSCULAR HGB CONC 31.3 g/dl (32.0-36.5); MONO # 0.3 10^3/uL (0.0-0.8); MONO % 4.2 % (2.0-8.0); NEUTROPHILS # 4.4 10^3/uL (1.5-8.5); NEUTROPHILS % 70.7 % (36.0-66.0); PLATELET COUNT, AUTOMATED 294 10^3/uL (150-450); RED BLOOD COUNT 3.43 10^6/uL (4.00-5.40); WHITE BLOOD COUNT 6.2 10^3/uL (4.0-10.0)
[2022-08-07 20:00] LABS: LIPASE 48 U/L (12-53)
[2022-08-07 20:02] LABS: ALBUMIN 3.3 G/DL (3.2-5.2); ALKALINE PHOSPHATASE 82 U/L (46-116); ALT/SGPT 12 U/L (7.0-40); AST/SGOT 20 U/L (<34); BILIRUBIN,DIRECT 0.1 MG/DL (<0.4); BILIRUBIN,TOTAL 0.4 MG/DL (0.3-1.2); BLOOD UREA NITROGEN 10 MG/DL (9-23); CALCIUM LEVEL 8.4 MG/DL (8.5-10.1); CARBON DIOXIDE LEVEL 25 MMOL/L (20-31); CHLORIDE LEVEL 111 MMOL/L (98-107); CREATININE FOR GFR 0.71 MG/DL (0.55-1.30); GLOMERULAR FILTRATION RATE > 60.0 (>58); GLUCOSE, FASTING 119 MG/DL (60-100); SODIUM LEVEL 144 MMOL/L (136-145); TOTAL PROTEIN 6.8 G/DL (5.7-8.2)
[2022-08-07] MEDS ORDERED: ISOVUE-370 76% 100ML VIAL As Ordered ONE (20:11)
[2022-08-07 21:57] VITALS: BP 128/62
[2022-08-07] MEDS ORDERED: ONDA4TAB6 PO (22:53)
[2022-08-07] MEDS ORDERED: ONDANSETRON 4MG ORAL DISINTEGRATING TAB PO ONE (22:55)
[2022-08-07] MEDS ORDERED: OXYC20TA2 PO (23:19)
[2022-08-07] MEDS ORDERED: PREG200C PO (23:19)
[2022-08-08] MEDS ORDERED: PREG100CA PO (18:17)
[2022-08-08] MEDS ORDERED: OXYC10TA12 PO (18:17)
== END 2022-08-07 23:45 | disposition home or self-care (01) ==
LOC: M ED 18:47 → EDBD 18:47 → M ED 23:45
DX: N83.202 Unspecified ovarian cyst, left side (principal); R16.0 Hepatomegaly, not elsewhere classified; M06.9 Rheumatoid arthritis, unspecified; J45.909 Unspecified asthma, uncomplicated; Z88.0 Allergy status to penicillin
CPT/HCPCS: 74177; 76856; 80048; 80076; 83605; 83690; 85025; 86850; 86900; 86901; 87040; 87486; 87581; 87633; 87798; 93005; 93041; 93976; 96374; 96375; 96376; 99285; J1885; J2405; Q9967

== ENCOUNTER 2022-08-08 15:00 | Emergency (ER) | payer MEDICAID ==
[~2022-08-08] VITALS: Ht 152.4 cm; Wt 127.3 kg
[~2022-08-08 15:00] MED LIST changes: +ONDA4TAB6 PO
[2022-08-08] MEDS ORDERED: PREGABALIN 100 MG CAP (LYRICA) PO ONE ×2 (15:20→18:20)
[2022-08-08] MEDS ORDERED: oxyCODONE 5MG TAB PO ONE ×2 (15:20→18:20)
[2022-08-08] MEDS ORDERED: ONDANSETRON 4MG ORAL DISINTEGRATING TAB PO ONE ×2 (15:20→18:50)
[2022-08-08] MEDS ORDERED: PREG100CA PO (18:17)
[2022-08-08] MEDS ORDERED: OXYC10TA12 PO (18:17)
[2022-08-08 18:43] VITALS: BP 110/57
== END 2022-08-08 20:06 | disposition home or self-care (01) ==
LOC: EDBD 15:00 → M ED 15:00
DX: F11.23 Opioid dependence with withdrawal (principal); M06.9 Rheumatoid arthritis, unspecified; J45.909 Unspecified asthma, uncomplicated; M54.50 Low back pain, unspecified; Z88.0 Allergy status to penicillin; Z79.52 Long term (current) use of systemic steroids; Z79.83 Long term (current) use of bisphosphonates; Z79.899 Other long term (current) drug therapy

== ENCOUNTER → 2022-09-01 | Outpatient (CLI) | payer MEDICAID, OTHER ==
[~2022-09-01] MED LIST changes: +OXYC10TA12 PO; +PREG100CA PO
== END ==
LOC: M CARPUL 13:27
PROVIDERS: ATTEND Internal Medicine Rheumatology
DX: M05.79 Rheumatoid arthritis with rheumatoid factor of multiple sites without organ or systems involvement (principal); R76.8 Other specified abnormal immunological findings in serum; R06.02 Shortness of breath; M35.00 Sjogren syndrome, unspecified; M15.9 Polyosteoarthritis, unspecified

== ENCOUNTER → 2022-10-13 | Outpatient (CLI) | payer OTHER | LOC: M SOG 07:59 | PROVIDERS: ATTEND Orthopaedic Surgery | DX: M25.511 Pain in right shoulder (principal); Z53.9 Procedure and treatment not carried out, unspecified reason ==

== ENCOUNTER 2022-11-04 13:14 | Emergency (ER) | payer OTHER ==
[~2022-11-04] VITALS: Ht 152.4 cm; Wt 125.0 kg
[2022-11-04] MEDS ORDERED: oxyCODONE 5MG TAB PO ONE (15:45)
[2022-11-04] MEDS ORDERED: PREGABALIN 100 MG CAP (LYRICA) PO ONE (15:45)
[2022-11-04] MEDS ORDERED: GABAPENTIN 100 MG CAP PO ONE (15:45)
[2022-11-04] MEDS ORDERED: PRED5TA PO (16:56)
[2022-11-04 17:14] VITALS: BP 136/69; TEMP 97.2; O2SAT 100
== END 2022-11-04 17:28 | disposition home or self-care (01) ==
LOC: EDBD 13:14 → M ED 13:14
DX: G89.4 Chronic pain syndrome (principal); M06.9 Rheumatoid arthritis, unspecified; M54.50 Low back pain, unspecified; J45.909 Unspecified asthma, uncomplicated; Z79.52 Long term (current) use of systemic steroids; Z79.83 Long term (current) use of bisphosphonates; Z79.899 Other long term (current) drug therapy

== ENCOUNTER → 2022-12-09 | Outpatient (CLI) | payer OTHER ==
[~2022-12-09] MED LIST changes: +PRED5TA PO; -PREG200C PO; +PREG200C2 PO
== END ==
LOC: M SOG 07:52
PROVIDERS: ATTEND Orthopaedic Surgery
DX: M25.511 Pain in right shoulder (principal)

== ENCOUNTER → 2022-12-09 | Outpatient (CLI) | payer OTHER ==
[~2022-12-09] MED LIST changes: +METHACHOLINE KIT INH ONE
== END ==
LOC: M CARPUL 09:20
PROVIDERS: ATTEND Physician Assistant
DX: R06.00 Dyspnea, unspecified (principal)
CPT/HCPCS: 71046; 94070; 95070; J7674

== ENCOUNTER → 2022-12-29 | Outpatient (CLI) | payer OTHER ==
[~2022-12-29] MED LIST changes: +ISOVUE-300 61% 100ML VIAL As Ordered ONE; -METHACHOLINE KIT INH ONE; -OXYB5TAB10 PO; +OXYB5TAB11 PO; +methylPREDNISolone SUSP 40MG/ML 1ML VIAL (DEPO MEDROL) As Ordered ONE
== END ==
LOC: M RAD 12:59
PROVIDERS: ATTEND Orthopaedic Surgery
DX: M05.711 Rheumatoid arthritis with rheumatoid factor of right shoulder without organ or systems involvement (principal)
CPT/HCPCS: 20610; 77002; J0665; J1030; Q9967

== ENCOUNTER → 2023-02-25 | Outpatient (REF) | payer MEDICAID ==
[~2023-02-25] MED LIST changes: -FLUT50SP17; +FLUTISP; -ISOVUE-300 61% 100ML VIAL As Ordered ONE; -methylPREDNISolone SUSP 40MG/ML 1ML VIAL (DEPO MEDROL) As Ordered ONE
[2023-02-25 17:10] LABS: APPEARANCE, URINE HAZY (CLEAR); BACTERIA, URINE AUTO NEGATIVE (NEGATIVE); BILIRUBIN, URINE AUTO NEGATIVE (NEGATIVE); BLOOD, URINE BLOOD NEGATIVE (NEGATIVE); CALCIUM OXALATE CRYSTALS MODERATE; COLOR, URINE YELLOW (YELLOW); GLUCOSE, URINE (UA) AUTO NEGATIVE (NEGATIVE); KETONE, URINE AUTO NEGATIVE (NEGATIVE); LEUKOCYTE ESTERASE, URINE AUTO NEGATIVE (NEGATIVE); MUCUS, URINE SMALL (NEGATIVE); NITRITE, URINE AUTO NEGATIVE (NEGATIVE); PROTEIN, URINE AUTO NEGATIVE (NEGATIVE); RBC, URINE AUTO 0 /HPF (0-3); SQUAMOUS EPITHELIAL CELL UR AU 7 /HPF (0-6); UROBILINOGEN, URINE AUTO 0.2 mg/dL (0.0-2.0); WBC, URINE AUTO 2 /HPF (0-3)
[2023-02-25 17:37] LABS: TOTAL PROTEIN,RANDOM URINE 26.5 MG/DL (0.0-14.0)
== END ==
LOC: M SFHCRHEU 14:11
PROVIDERS: ATTEND Internal Medicine Rheumatology
DX: M05.79 Rheumatoid arthritis with rheumatoid factor of multiple sites without organ or systems involvement (principal); M35.00 Sjogren syndrome, unspecified; M15.9 Polyosteoarthritis, unspecified; R76.8 Other specified abnormal immunological findings in serum; R06.02 Shortness of breath

== ENCOUNTER → 2023-03-07 | Outpatient (REF) | payer MEDICAID, OTHER | LOC: M SFHCRHEU 11:14 | PROVIDERS: ATTEND Internal Medicine Rheumatology | DX: Z53.9 Procedure and treatment not carried out, unspecified reason (principal); M05.79 Rheumatoid arthritis with rheumatoid factor of multiple sites without organ or systems involvement; R76.8 Other specified abnormal immunological findings in serum; R06.02 Shortness of breath; M35.00 Sjogren syndrome, unspecified; M15.9 Polyosteoarthritis, unspecified ==

== ENCOUNTER 2023-03-26 03:32 | Emergency (ER) | payer OTHER ==
[~2023-03-26] VITALS: Ht 152.4 cm; Wt 119.0 kg
[2023-03-26] MEDS ORDERED: PERCOCET 5MG/325MG TAB PO ONE ×2 (07:25→09:15)
[2023-03-26 11:17] VITALS: BP 119/62; TEMP 97.5; O2SAT 98
== END 2023-03-26 13:15 | disposition home or self-care (01) ==
LOC: M ED 03:32
DX: S83.92XA Sprain of unspecified site of left knee, initial encounter (principal); X50.0XXA Overexertion from strenuous movement or load, initial encounter; J45.909 Unspecified asthma, uncomplicated; Y92.009 Unspecified place in unspecified non-institutional (private) residence as the place of occurrence of the external cause; Y93.89 Activity, other specified; Y99.9 Unspecified external cause status; Z79.52 Long term (current) use of systemic steroids; Z79.83 Long term (current) use of bisphosphonates; Z79.899 Other long term (current) drug therapy

== ENCOUNTER → 2023-05-05 | Outpatient (CLI) | payer OTHER ==
[~2023-05-05] MED LIST changes: +CEPH500C PO; -FLUTISP; +FLUTISP NARES; +FOLI1TAB11 PO; +LIDO1PAD TOP; +METH2.5T48 PO; -MIRA1POW3 PO; +MIRA33506 PO; +OMEP-173 PO; +ONDA-84 PO; +OXYB-54 PO; -OXYB5TAB11 PO; +OXYB5TAB14 PO
== END ==
LOC: M SLEEP 20:00
PROVIDERS: ATTEND Physician Assistant
DX: R40.0 Somnolence (principal); G47.33 Obstructive sleep apnea (adult) (pediatric)

== ENCOUNTER 2023-05-06 07:02 | Inpatient (IN) | payer OTHER ==
[~2023-05-06] VITALS: Ht 152.4 cm; Wt 132.7 kg
[~2023-05-06 07:02] MED LIST changes: -CEPH500C PO; -FOLI1TAB11 PO; -LIDO1PAD TOP; -METH2.5T48 PO; -OMEP-173 PO; -ONDA-84 PO; -OXYB-54 PO
[2023-05-06 09:21] LABS: BASO % 0.2 % (0.0-1.0); EOS # 0.1 10^3/uL (0.0-0.5); HEMATOCRIT 30.2 % (36.0-47.0); HEMOGLOBIN 9.8 g/dl (12.0-15.5); LYMPH # 1.5 10^3/uL (1.5-5.0); LYMPH % 17.3 % (24.0-44.0); MEAN CORPUSCULAR HEMOGLOBIN 28.1 pg (27.0-33.0); MEAN CORPUSCULAR HGB CONC 32.5 g/dl (32.0-36.5); MEAN CORPUSCULAR VOLUME 86.5 fl (80.0-96.0); MONO # 0.2 10^3/uL (0.0-0.8); MONO % 2.7 % (2.0-8.0); NEUTROPHILS # 6.9 10^3/uL (1.5-8.5); NEUTROPHILS % 78.2 % (36.0-66.0); PLATELET COUNT, AUTOMATED 180 10^3/uL (150-450); RED BLOOD COUNT 3.49 10^6/uL (4.00-5.40); WHITE BLOOD COUNT 8.8 10^3/uL (4.0-10.0)
[2023-05-06] MEDS: NS 1,000 ML IV ONE (09:25)
[2023-05-06] MEDS: MORPHINE 4 MG/ML 1ML VIAL IV ONE (09:25)
[2023-05-06 09:40] LABS: INR 1.06; PROTHROMBIN TIME 13.5 SECONDS (12.5-14.5)
[2023-05-06 09:41] LABS: PARTIAL THROMBOPLASTIN TIME 22.9 SECONDS (24.8-34.2)
[2023-05-06 09:52] LABS: ALBUMIN 3.3 G/DL (3.2-5.2); ALKALINE PHOSPHATASE 79 U/L (46-116); ALT/SGPT 15 U/L (7.0-40); AST/SGOT < 8 U/L (<34); BILIRUBIN,DIRECT 0.2 MG/DL (<0.4); BILIRUBIN,TOTAL 0.6 MG/DL (0.3-1.2); BLOOD UREA NITROGEN 20 MG/DL (9-23); CALCIUM LEVEL 8.1 MG/DL (8.5-10.1); CARBON DIOXIDE LEVEL 29 MMOL/L (20-31); CHLORIDE LEVEL 106 MMOL/L (98-107); CREATININE FOR GFR 0.72 MG/DL (0.55-1.30); GLOMERULAR FILTRATION RATE > 60.0 (>58); GLUCOSE, FASTING 115 MG/DL (60-100); POTASSIUM SERUM 3.4 MMOL/L (3.5-5.1); SODIUM LEVEL 140 MMOL/L (136-145)
[2023-05-06 09:53] LABS: ERYTHROCYTE SEDIMENTATION RATE 18 mm/hr (0-20)
[2023-05-06 10:03] LABS: PROCALCITONIN <0.04 ng/ml
[2023-05-06] MEDS ORDERED: VANCOMYCIN HCL 2,000 MG in D5W 500 ML IV ONE (10:40)
[2023-05-06] MEDS: VANCOMYCIN HCL 1,000 MG, VIAL MATE ADAPTER 1 EACH in D5W 250 ML IV ONE ×2 (10:55→12:20)
[2023-05-06] MEDS ORDERED: MIRA3350 PO (11:48)
[2023-05-06] MEDS ORDERED: COLA100C5 PO (11:48)
[2023-05-06] MEDS ORDERED: METH2.5T48 PO (11:48)
[2023-05-06] MEDS ORDERED: OMEP-173 PO (11:48)
[2023-05-06] MEDS ORDERED: OXYB-54 PO (11:48)
[2023-05-06] MEDS ORDERED: ONDA-84 PO (11:48)
[2023-05-06] MEDS ORDERED: LIDO1PAD TOP (11:48)
[2023-05-06] MEDS ORDERED: PRED20TA PO (11:48)
[2023-05-06] MEDS ORDERED: FOLI1TAB11 PO (11:48)
[2023-05-06] MEDS ORDERED: HOME MED LIST COMPLETE! XX SCH (11:50)
[2023-05-06] MEDS ORDERED: ISOVUE-370 76% 100ML VIAL As Ordered ONE (11:55)
[2023-05-06] MEDS: POTASSIUM CHLORIDE 10MEQ SR TABLET PO ONE (12:24)
[2023-05-06] MEDS: HYALURONIDASE 15UNIT/ML 1ML SYRINGE (AMPHADASE) SC ONE (12:57)
[2023-05-06 13:35] VITALS: BP 129/60; TEMP 98.4; O2SAT 99
[2023-05-06] MEDS: cefTRIAXone SOD 1 GM in D5W MINI-BAG PLUS 50 ML IV SCH (14:07)
[2023-05-06] MEDS: VANCOMYCIN HCL 1,000 MG, VIAL MATE ADAPTER 1 EACH in D5W 250 ML IV SCH (15:11)
[2023-05-06] MEDS ORDERED: DOCUSATE SODIUM 100MG CAPSULE PO PRN (16:40)
[2023-05-06] MEDS ORDERED: FLUTICASONE PROP 0.05% NASAL SPRAY 16 GM (FLONASE) NARES PRN (16:40)
[2023-05-06] MEDS ORDERED: MIRALAX *UNIT DOSE* 17GM PACKET PO PRN (16:40)
[2023-05-06] MEDS: PREGABALIN 100 MG CAP (LYRICA) PO SCH (18:05)
[2023-05-06] MEDS: oxyCODONE 5MG TAB PO SCH (18:06)
[2023-05-06 21:30] VITALS: BP 129/75; TEMP 98.2; O2SAT 96
[2023-05-06] MEDS: zolPIDEM TARTRATE 5 MG TAB PO SCH (21:54)
[2023-05-06] MEDS: ENOXAPARIN 40MG/0.4ML SYRINGE (J1650 PER 10MG) SC SCH (21:55)
[2023-05-06] MEDS: LIDOCAINE 5% (LIDODERM) PATCH TOP SCH (21:56)
[2023-05-06] MEDS: ADVAIR HFA 115/21MCG INHALER INH SCH (22:01)
[2023-05-07 06:00] VITALS: BP 128/73; TEMP 98.1; O2SAT 95
[2023-05-07 06:09] LABS: BASO % 0.3 % (0.0-1.0); EOS # 0.1 10^3/uL (0.0-0.5); EOS % 1.5 % (0.0-3.0); HEMATOCRIT 29.1 % (36.0-47.0); HEMOGLOBIN 9.5 g/dl (12.0-15.5); LYMPH # 1.2 10^3/uL (1.5-5.0); LYMPH % 19.2 % (24.0-44.0); MEAN CORPUSCULAR HEMOGLOBIN 28.6 pg (27.0-33.0); MEAN CORPUSCULAR HGB CONC 32.6 g/dl (32.0-36.5); MEAN CORPUSCULAR VOLUME 87.7 fl (80.0-96.0); MONO # 0.3 10^3/uL (0.0-0.8); MONO % 4.5 % (2.0-8.0); NEUTROPHILS # 4.5 10^3/uL (1.5-8.5); NEUTROPHILS % 73.2 % (36.0-66.0); PLATELET COUNT, AUTOMATED 175 10^3/uL (150-450); RED BLOOD COUNT 3.32 10^6/uL (4.00-5.40); WHITE BLOOD COUNT 6.2 10^3/uL (4.0-10.0)
[2023-05-07 06:36] LABS: BLOOD UREA NITROGEN 16 MG/DL (9-23); CALCIUM LEVEL 7.8 MG/DL (8.5-10.1); CARBON DIOXIDE LEVEL 26 MMOL/L (20-31); CHLORIDE LEVEL 107 MMOL/L (98-107); CREATININE FOR GFR 0.62 MG/DL (0.55-1.30); GLOMERULAR FILTRATION RATE > 60.0 (>58); GLUCOSE, FASTING 117 MG/DL (60-100); MAGNESIUM LEVEL 1.9 MG/DL (1.8-2.4); PHOSPHORUS LEVEL 3.9 MG/DL (2.5-4.9); SODIUM LEVEL 140 MMOL/L (136-145)
[2023-05-07] MEDS: ALBUTEROL 90 MCG/ACT 8GM HFA INHALER INH PRN (08:12)
[2023-05-07] MEDS: predniSONE 20 MG TAB PO SCH (08:14)
[2023-05-07] MEDS: OMEPRAZOLE 20MG CAP PO SCH (08:14)
[2023-05-07] MEDS: oxyBUTYnin *DITROPAN XL* 5 MG TABCR PO SCH (08:14)
[2023-05-07] MEDS: FOLIC ACID 1MG TAB PO SCH (08:14)
[2023-05-07] MEDS: ONDANSETRON 4MG TAB PO PRN (09:52)
[2023-05-07] MEDS: cefTRIAXone SOD 2 GM in D5W MINI-BAG PLUS 50 ML IV SCH (13:44)
[2023-05-07 14:00] VITALS: BP 125/73; TEMP 97.5; O2SAT 97
[2023-05-07] MEDS: SUMAtriptan SUCCINATE 25 MG TAB PO ONE (17:44)
[2023-05-07 21:05] VITALS: BP_SYST 135; BP_SYST 136; BP_DIAS 84; TEMP 97.3; O2SAT 96
[2023-05-08 05:52] LABS: HEMATOCRIT 29.2 % (36.0-47.0); HEMOGLOBIN 9.5 g/dl (12.0-15.5); MEAN CORPUSCULAR HEMOGLOBIN 28.4 pg (27.0-33.0); MEAN CORPUSCULAR HGB CONC 32.5 g/dl (32.0-36.5); MEAN CORPUSCULAR VOLUME 87.2 fl (80.0-96.0); PLATELET COUNT, AUTOMATED 173 10^3/uL (150-450); RED BLOOD COUNT 3.35 10^6/uL (4.00-5.40); WHITE BLOOD COUNT 7.3 10^3/uL (4.0-10.0)
[2023-05-08 06:00] VITALS: BP 136/84; TEMP 97.8; O2SAT 95
[2023-05-08 06:22] LABS: BLOOD UREA NITROGEN 11 MG/DL (9-23); CALCIUM LEVEL 8.3 MG/DL (8.5-10.1); CARBON DIOXIDE LEVEL 28 MMOL/L (20-31); CHLORIDE LEVEL 107 MMOL/L (98-107); CREATININE FOR GFR 0.62 MG/DL (0.55-1.30); GLOMERULAR FILTRATION RATE > 60.0 (>58); GLUCOSE, FASTING 146 MG/DL (60-100); POTASSIUM SERUM 3.9 MMOL/L (3.5-5.1); SODIUM LEVEL 140 MMOL/L (136-145)
[2023-05-08 14:00] VITALS: BP 148/84; TEMP 97.9; O2SAT 98
[2023-05-08 20:58] VITALS: BP 146/72; TEMP 98.2; O2SAT 97
[2023-05-09 05:54] LABS: HEMOGLOBIN 9.3 g/dl (12.0-15.5); MEAN CORPUSCULAR HEMOGLOBIN 28.4 pg (27.0-33.0); MEAN CORPUSCULAR HGB CONC 32.1 g/dl (32.0-36.5); MEAN CORPUSCULAR VOLUME 88.4 fl (80.0-96.0); PLATELET COUNT, AUTOMATED 192 10^3/uL (150-450); RED BLOOD COUNT 3.28 10^6/uL (4.00-5.40); WHITE BLOOD COUNT 9.8 10^3/uL (4.0-10.0)
[2023-05-09 06:16] VITALS: BP 147/73; TEMP 98.2; O2SAT 98
[2023-05-09 06:20] LABS: BLOOD UREA NITROGEN 15 MG/DL (9-23); CALCIUM LEVEL 8.2 MG/DL (8.5-10.1); CARBON DIOXIDE LEVEL 31 MMOL/L (20-31); CHLORIDE LEVEL 105 MMOL/L (98-107); CREATININE FOR GFR 0.62 MG/DL (0.55-1.30); GLOMERULAR FILTRATION RATE > 60.0 (>58); GLUCOSE, FASTING 129 MG/DL (60-100); POTASSIUM SERUM 4.1 MMOL/L (3.5-5.1); SODIUM LEVEL 139 MMOL/L (136-145)
[2023-05-09] MEDS: METHOTREXATE 2.5MG TAB PO SCH (08:30)
[2023-05-09] MEDS ORDERED: CEPH500C PO (11:45)
[2023-05-09] MEDS ORDERED: METHOTREXATE 2.5MG TAB PO SCH (21:00)
== END 2023-05-09 13:40 | disposition home or self-care (01) | DRG 383 ==
LOC: M ED 07:03 → M ED INP 11:17 → ENRESERV 12:31 → M MSPAV 13:50
PROVIDERS: ADMIT Internal Medicine; ATTEND Family Medicine
DX: L03.115 Cellulitis of right lower limb (principal); Z68.43 Body mass index [BMI] 50.0-59.9, adult; G62.9 Polyneuropathy, unspecified; E66.9 Obesity, unspecified; E87.6 Hypokalemia; J45.909 Unspecified asthma, uncomplicated; M06.9 Rheumatoid arthritis, unspecified; G43.909 Migraine, unspecified, not intractable, without status migrainosus

== ENCOUNTER → 2023-05-06 | Outpatient (CLI) | payer OTHER ==
[2023-05-06 07:08] LABS: BASO % 0.3 % (0.0-1.0); EOS # 0.1 10^3/uL (0.0-0.5); EOS % 0.8 % (0.0-3.0); HEMATOCRIT 32.4 % (36.0-47.0); HEMOGLOBIN 10.3 g/dl (12.0-15.5); LYMPH # 1.7 10^3/uL (1.5-5.0); LYMPH % 16.5 % (24.0-44.0); MEAN CORPUSCULAR HEMOGLOBIN 27.5 pg (27.0-33.0); MEAN CORPUSCULAR HGB CONC 31.8 g/dl (32.0-36.5); MEAN CORPUSCULAR VOLUME 86.6 fl (80.0-96.0); MONO # 0.3 10^3/uL (0.0-0.8); MONO % 3.1 % (2.0-8.0); NEUTROPHILS % 78.8 % (36.0-66.0); PLATELET COUNT, AUTOMATED 195 10^3/uL (150-450); RED BLOOD COUNT 3.74 10^6/uL (4.00-5.40); WHITE BLOOD COUNT 10.1 10^3/uL (4.0-10.0)
[2023-05-06 07:17] LABS: ERYTHROCYTE SEDIMENTATION RATE 22 mm/hr (0-20)
[2023-05-06 07:27] LABS: ALBUMIN 3.4 G/DL (3.2-5.2); ALKALINE PHOSPHATASE 84 U/L (46-116); ALT/SGPT 17 U/L (7.0-40); AST/SGOT 11 U/L (<34); BILIRUBIN,TOTAL 0.5 MG/DL (0.3-1.2); BLOOD UREA NITROGEN 20 MG/DL (9-23); CALCIUM LEVEL 8.3 MG/DL (8.5-10.1); CARBON DIOXIDE LEVEL 31 MMOL/L (20-31); CHLORIDE LEVEL 105 MMOL/L (98-107); CREATININE FOR GFR 0.75 MG/DL (0.55-1.30); GLOMERULAR FILTRATION RATE > 60.0 (>58); GLUCOSE, FASTING 105 MG/DL (60-100); POTASSIUM SERUM 3.8 MMOL/L (3.5-5.1); SODIUM LEVEL 141 MMOL/L (136-145); TOTAL PROTEIN 6.2 G/DL (5.7-8.2)
== END ==
LOC: M LAB 06:32
PROVIDERS: ATTEND Internal Medicine Rheumatology
DX: M05.79 Rheumatoid arthritis with rheumatoid factor of multiple sites without organ or systems involvement (principal)

== ENCOUNTER → 2023-06-10 | Outpatient (CLI) | payer MEDICAID, OTHER ==
[~2023-06-10] MED LIST changes: +CEPH500C PO; +FOLI1TAB11 PO; +LIDO1PAD TOP; +METH2.5T48 PO; +OMEP-173 PO; +ONDA-84 PO; +OXYB-54 PO
[2023-06-10 15:47] LABS: BASO % 0.3 % (0.0-1.0); EOS # 0.1 10^3/uL (0.0-0.5); EOS % 1.3 % (0.0-3.0); HEMATOCRIT 35.7 % (36.0-47.0); HEMOGLOBIN 11.6 g/dl (12.0-15.5); LYMPH # 1.4 10^3/uL (1.5-5.0); LYMPH % 15.6 % (24.0-44.0); MEAN CORPUSCULAR HEMOGLOBIN 29.8 pg (27.0-33.0); MEAN CORPUSCULAR HGB CONC 32.5 g/dl (32.0-36.5); MEAN CORPUSCULAR VOLUME 91.8 fl (80.0-96.0); MONO # 0.5 10^3/uL (0.0-0.8); MONO % 5.5 % (2.0-8.0); NEUTROPHILS # 6.7 10^3/uL (1.5-8.5); NEUTROPHILS % 76.6 % (36.0-66.0); PLATELET COUNT, AUTOMATED 246 10^3/uL (150-450); RED BLOOD COUNT 3.89 10^6/uL (4.00-5.40); WHITE BLOOD COUNT 8.8 10^3/uL (4.0-10.0)
[2023-06-10 15:54] LABS: ERYTHROCYTE SEDIMENTATION RATE 25 mm/hr (0-20)
[2023-06-10 17:34] LABS: ALBUMIN 3.4 G/DL (3.2-5.2); ALKALINE PHOSPHATASE 92 U/L (46-116); ALT/SGPT 17 U/L (7.0-40); AST/SGOT 19 U/L (<34); BILIRUBIN,TOTAL 0.4 MG/DL (0.3-1.2); BLOOD UREA NITROGEN 19 MG/DL (9-23); CALCIUM LEVEL 8.8 MG/DL (8.5-10.1); CARBON DIOXIDE LEVEL 29 MMOL/L (20-31); CHLORIDE LEVEL 107 MMOL/L (98-107); CREATININE FOR GFR 0.77 MG/DL (0.55-1.30); GLOMERULAR FILTRATION RATE > 60.0 (>58); GLUCOSE, FASTING 110 MG/DL (60-100); POTASSIUM SERUM 4.3 MMOL/L (3.5-5.1); SODIUM LEVEL 142 MMOL/L (136-145); TOTAL PROTEIN 6.6 G/DL (5.7-8.2)
== END ==
LOC: M LAB 15:27
PROVIDERS: ATTEND Internal Medicine Rheumatology
DX: M05.79 Rheumatoid arthritis with rheumatoid factor of multiple sites without organ or systems involvement (principal); M35.00 Sjogren syndrome, unspecified; M15.9 Polyosteoarthritis, unspecified; R76.8 Other specified abnormal immunological findings in serum; R06.02 Shortness of breath

== ENCOUNTER → 2023-07-19 | Outpatient (CLI) | payer OTHER ==
[2023-07-19 13:36] LABS: BASO % 0.3 % (0.0-1.0); EOS # 0.2 10^3/uL (0.0-0.5); EOS % 2.2 % (0.0-3.0); HEMATOCRIT 35.6 % (36.0-47.0); HEMOGLOBIN 11.6 g/dl (12.0-15.5); LYMPH # 1.6 10^3/uL (1.5-5.0); LYMPH % 17.1 % (24.0-44.0); MEAN CORPUSCULAR HEMOGLOBIN 28.2 pg (27.0-33.0); MEAN CORPUSCULAR HGB CONC 32.6 g/dl (32.0-36.5); MEAN CORPUSCULAR VOLUME 86.6 fl (80.0-96.0); MONO # 0.5 10^3/uL (0.0-0.8); MONO % 5.6 % (2.0-8.0); NEUTROPHILS # 6.9 10^3/uL (1.5-8.5); NEUTROPHILS % 74.3 % (36.0-66.0); PLATELET COUNT, AUTOMATED 255 10^3/uL (150-450); RED BLOOD COUNT 4.11 10^6/uL (4.00-5.40); WHITE BLOOD COUNT 9.2 10^3/uL (4.0-10.0)
[2023-07-19 14:11] LABS: ALBUMIN 3.1 G/DL (3.2-5.2); ALKALINE PHOSPHATASE 103 U/L (46-116); ALT/SGPT 18 U/L (7.0-40); AST/SGOT 10 U/L (<34); BILIRUBIN,TOTAL 0.6 MG/DL (0.3-1.2); BLOOD UREA NITROGEN 11 MG/DL (9-23); CALCIUM LEVEL 8.6 MG/DL (8.5-10.1); CARBON DIOXIDE LEVEL 24 MMOL/L (20-31); CHLORIDE LEVEL 106 MMOL/L (98-107); CREATININE FOR GFR 0.61 MG/DL (0.55-1.30); GLOMERULAR FILTRATION RATE > 60.0 (>58); GLUCOSE, FASTING 133 MG/DL (60-100); POTASSIUM SERUM 3.8 MMOL/L (3.5-5.1); SODIUM LEVEL 141 MMOL/L (136-145); TOTAL PROTEIN 6.5 G/DL (5.7-8.2)
[2023-07-19 14:17] LABS: HEMOGLOBIN A1c 5.3 % (4.0-6.0)
== END ==
LOC: M LAB 13:06
PROVIDERS: ATTEND Physician Assistant Surgical
DX: E66.01 Morbid (severe) obesity due to excess calories (principal)

== ENCOUNTER 2023-08-20 18:26 | Inpatient (IN) | payer OTHER ==
[~2023-08-20] VITALS: Ht 152.4 cm; Wt 140.4 kg
[~2023-08-20 18:26] MED LIST changes: +ONDA-282 PO; -ONDA4TAB6 PO
[2023-08-20] MEDS: NS 1,000 ML IV ONE ×2 (19:10→20:46)
[2023-08-20] MEDS: MORPHINE 4 MG/ML 1ML VIAL IV PRN ×2 (19:23→22:40)
[2023-08-20 19:27] LABS: BASO % 0.3 % (0.0-1.0); EOS # 0.1 10^3/uL (0.0-0.5); EOS % 1.8 % (0.0-3.0); HEMATOCRIT 34.6 % (36.0-47.0); LYMPH # 0.9 10^3/uL (1.5-5.0); LYMPH % 14.5 % (24.0-44.0); MEAN CORPUSCULAR HEMOGLOBIN 28.4 pg (27.0-33.0); MEAN CORPUSCULAR HGB CONC 31.8 g/dl (32.0-36.5); MEAN CORPUSCULAR VOLUME 89.4 fl (80.0-96.0); MONO # 0.5 10^3/uL (0.0-0.8); MONO % 8.4 % (2.0-8.0); NEUTROPHILS # 4.4 10^3/uL (1.5-8.5); NEUTROPHILS % 74.7 % (36.0-66.0); PLATELET COUNT, AUTOMATED 309 10^3/uL (150-450); RED BLOOD COUNT 3.87 10^6/uL (4.00-5.40)
[2023-08-20 19:38] LABS: LIPASE 32 U/L (12-53)
[2023-08-20] MEDS ORDERED: ISOVUE-370 76% 100ML VIAL As Ordered ONE (19:39)
[2023-08-20 19:40] LABS: ALBUMIN 3.8 G/DL (3.2-5.2); ALKALINE PHOSPHATASE 82 U/L (46-116); ALT/SGPT 24 U/L (7.0-40); AST/SGOT 20 U/L (<34); BILIRUBIN,DIRECT 0.4 MG/DL (<0.4); BLOOD UREA NITROGEN 10 MG/DL (9-23); CALCIUM LEVEL 9.3 MG/DL (8.5-10.1); CARBON DIOXIDE LEVEL 26 MMOL/L (20-31); CHLORIDE LEVEL 105 MMOL/L (98-107); CREATININE FOR GFR 0.82 MG/DL (0.55-1.30); GLOMERULAR FILTRATION RATE > 60.0 (>58); GLUCOSE, FASTING 139 MG/DL (60-100); POTASSIUM SERUM 4.2 MMOL/L (3.5-5.1); SODIUM LEVEL 139 MMOL/L (136-145); TOTAL PROTEIN 7.1 G/DL (5.7-8.2)
[2023-08-20 20:16] LABS: INR 1.17; PARTIAL THROMBOPLASTIN TIME 24.1 SECONDS (24.8-34.2); PROTHROMBIN TIME 14.5 SECONDS (12.5-14.5)
[2023-08-20] MEDS: ENOXAPARIN 150MG/ML SYRINGE SC ONE (22:01)
[2023-08-20] MEDS ORDERED: ACETAMINOPHEN TAB 650MG DOSE (2X325MG) PO PRN (22:25)
[2023-08-20] MEDS ORDERED: ONDA-83 PO (22:26)
[2023-08-20] MEDS ORDERED: PERCOCET 5MG/325MG TAB PO PRN (22:30)
[2023-08-20] MEDS ORDERED: HOME MED LIST COMPLETE! XX SCH (22:30)
[2023-08-20] MEDS ORDERED: IPRATROPIUM 0.5MG/ALBUTEROL 2.5MG INH SOL UD 3ML (DUONEB) NEB PRN (22:35)
[2023-08-20] MEDS: ONDANSETRON 4MG 2ML VIAL IV PRN (22:40)
[2023-08-20] MEDS ORDERED: FLUTICASONE PROP 0.05% NASAL SPRAY 16 GM (FLONASE) NARES PRN (22:45)
[2023-08-20] MEDS ORDERED: ALBUTEROL 90 MCG/ACT 8GM HFA INHALER INH PRN (22:45)
[2023-08-20] MEDS: oxyCODONE 5MG TAB PO SCH (23:10)
[2023-08-20] MEDS: SENOKOT S TAB PO SCH (23:10)
[2023-08-20] MEDS: ACETAMINOPHEN TAB 650MG DOSE (2X325MG) PO PRN (23:30)
[2023-08-20 23:54] VITALS: BP 122/84; TEMP 98.2; O2SAT 90
[2023-08-21] VITALS (10 sets, daily range): BP systolic 101–148; BP diastolic 58–84; TEMP 97.2–97.9; O2SAT 92–96
[2023-08-21] MEDS: PREGABALIN 100 MG CAP (LYRICA) PO SCH (00:23)
[2023-08-21] MEDS: zolPIDEM TARTRATE 5 MG TAB PO SCH (00:23)
[2023-08-21] MEDS ORDERED: MORPHINE 4 MG/ML 1ML VIAL IV PRN (03:00)
[2023-08-21 06:23] LABS: HEMATOCRIT 30.3 % (36.0-47.0); HEMOGLOBIN 9.4 g/dl (12.0-15.5); MEAN CORPUSCULAR HEMOGLOBIN 27.6 pg (27.0-33.0); MEAN CORPUSCULAR VOLUME 89.1 fl (80.0-96.0); PLATELET COUNT, AUTOMATED 270 10^3/uL (150-450); WHITE BLOOD COUNT 5.1 10^3/uL (4.0-10.0)
[2023-08-21 06:57] LABS: ALBUMIN 3.3 G/DL (3.2-5.2); ALKALINE PHOSPHATASE 73 U/L (46-116); ALT/SGPT 19 U/L (7.0-40); AST/SGOT 19 U/L (<34); BILIRUBIN,TOTAL 1.1 MG/DL (0.3-1.2); BLOOD UREA NITROGEN 10 MG/DL (9-23); CALCIUM LEVEL 8.7 MG/DL (8.5-10.1); CARBON DIOXIDE LEVEL 24 MMOL/L (20-31); CHLORIDE LEVEL 107 MMOL/L (98-107); CREATININE FOR GFR 0.88 MG/DL (0.55-1.30); GLOMERULAR FILTRATION RATE > 60.0 (>58); GLUCOSE, FASTING 109 MG/DL (60-100); MAGNESIUM LEVEL 1.9 MG/DL (1.8-2.4); POTASSIUM SERUM 4.3 MMOL/L (3.5-5.1); SODIUM LEVEL 139 MMOL/L (136-145); TOTAL PROTEIN 6.5 G/DL (5.7-8.2)
[2023-08-21] MEDS: ADVAIR HFA 115/21MCG INHALER INH SCH (07:40)
[2023-08-21] MEDS: predniSONE 20 MG TAB PO SCH (08:20)
[2023-08-21] MEDS: PANTOPRAZOLE 40MG TAB (PROTONIX) PO SCH (08:20)
[2023-08-21] MEDS: FOLIC ACID 1MG TAB PO SCH (08:21)
[2023-08-21] MEDS: oxyBUTYnin *DITROPAN XL* 5 MG TABCR PO SCH (08:21)
[2023-08-21] MEDS: ACETAMINOPHEN TAB 650MG DOSE (2X325MG) PO ONE (08:23)
[2023-08-21] MEDS: ENOXAPARIN 150MG/ML SYRINGE SC SCH (08:25)
[2023-08-21] MEDS ORDERED: MOM 30ML SUSPENSION UDC PO PRN (10:55)
[2023-08-21 11:42] LABS: INR 1.39; PARTIAL THROMBOPLASTIN TIME 43.1 SECONDS (24.8-34.2); PROTHROMBIN TIME 16.6 SECONDS (12.5-14.5)
[2023-08-21 11:47] LABS: CK-MB VALUE MASS < 1.0 NG/ML (<3.6); CPK CREATINE PHOSPHOKINASE 28 U/L (34-145); MB/CK RELATIVE INDEX 3.57 (< OR =4)
[2023-08-21 11:48] LABS: IRON (FE) 16 UG/DL (50-170); PERCENT SATURATION 5.8 % (13.2-45.0); TOTAL IRON BINDING CAPACITY 274 UG/DL (250-425)
[2023-08-21 11:50] LABS: FREE T4 1.31 NG/DL (0.89-1.76); THYROID STIMULATING HORMONE 3.456 uIU/ML (0.55-4.78)
[2023-08-21 11:51] LABS: FERRITIN 168.5 NG/ML (7.3-270.7)
[2023-08-21 12:01] LABS: MONO SCRN NEGATIVE (NEGATIVE)
[2023-08-21] MEDS: SUCRALFATE 1 GM TAB PO SCH (13:30)
[2023-08-21] MEDS: APIXABAN 5 MG TAB (ELIQUIS) PO SCH (21:08)
[2023-08-21] MEDS: LIDOCAINE 5% (LIDODERM) PATCH TOP SCH (21:09)
[2023-08-22 03:50] VITALS: BP 112/61; TEMP 97; O2SAT 94
[2023-08-22 08:00] VITALS: BP 114/59; TEMP 96.8; O2SAT 95
[2023-08-22 12:00] VITALS: BP 106/59; TEMP 97.2; O2SAT 94
[2023-08-22 15:50] VITALS: BP 100/55; TEMP 97.3; O2SAT 84
[2023-08-22 21:01] VITALS: BP 103/61; TEMP 97.2; O2SAT 95
[2023-08-23] VITALS (7 sets, daily range): BP systolic 106–137; BP diastolic 61–81; TEMP 97–97.5; O2SAT 93–98
[2023-08-23 07:00] LABS: HEMATOCRIT 27.4 % (36.0-47.0); HEMOGLOBIN 8.6 g/dl (12.0-15.5); MEAN CORPUSCULAR HEMOGLOBIN 27.9 pg (27.0-33.0); MEAN CORPUSCULAR HGB CONC 31.4 g/dl (32.0-36.5); PLATELET COUNT, AUTOMATED 220 10^3/uL (150-450); RED BLOOD COUNT 3.08 10^6/uL (4.00-5.40); WHITE BLOOD COUNT 3.6 10^3/uL (4.0-10.0)
[2023-08-23] MEDS: SENOKOT S TAB PO ONE (12:19)
[2023-08-23] MEDS: MOM 30ML SUSPENSION UDC PO ONE (12:20)
[2023-08-23] MEDS: BISACODYL 5MG TAB PO ONE (12:20)
[2023-08-23 13:04] LABS: HEMATOCRIT 30.2 % (36.0-47.0); HEMOGLOBIN 9.5 g/dl (12.0-15.5)
[2023-08-23 18:56] LABS: HEMATOCRIT 31.5 % (36.0-47.0); HEMOGLOBIN 9.9 g/dl (12.0-15.5)
[2023-08-23] MEDS: PANTOPRAZOLE 40MG TAB (PROTONIX) PO SCH (21:45)
[2023-08-24 00:40] LABS: HEMATOCRIT 34.4 % (36.0-47.0); HEMOGLOBIN 10.8 g/dl (12.0-15.5)
[2023-08-24 03:55] VITALS: BP 133/76; TEMP 97.2; O2SAT 97
[2023-08-24 06:37] LABS: HEMATOCRIT 28.1 % (36.0-47.0); HEMOGLOBIN 8.9 g/dl (12.0-15.5)
[2023-08-24 08:00] VITALS: BP 128/74; TEMP 97.3; O2SAT 99
[2023-08-24 12:00] VITALS: BP 109/68; TEMP 97.3; O2SAT 99
[2023-08-24 12:32] LABS: HEMATOCRIT 29.9 % (36.0-47.0); HEMOGLOBIN 9.3 g/dl (12.0-15.5)
[2023-08-24] MEDS: MIRALAX *UNIT DOSE* 17GM PACKET PO ONE (15:35)
[2023-08-24] MEDS: BISACODYL 5MG TAB PO ONE (15:36)
[2023-08-24] MEDS: SENOKOT S TAB PO ONE (15:36)
[2023-08-24] MEDS: MOM 30ML SUSPENSION UDC PO ONE (15:41)
[2023-08-24 15:53] LABS: PERCENT SATURATION 10.5 % (13.2-45.0)
[2023-08-24 15:56] LABS: FERRITIN 184.1 NG/ML (7.3-270.7)
[2023-08-24 16:00] VITALS: BP 169/95; TEMP 97.5; O2SAT 97
[2023-08-24 18:52] LABS: HEMATOCRIT 30.4 % (36.0-47.0); HEMOGLOBIN 9.6 g/dl (12.0-15.5)
[2023-08-24 19:57] VITALS: BP 112/66; TEMP 97.3; O2SAT 98
[2023-08-28] MEDS ORDERED: APIXABAN 5 MG TAB (ELIQUIS) PO SCH (21:00)
== END 2023-08-24 23:04 | disposition short-term general hospital (02) | DRG 197 ==
LOC: M ED 18:26 → M ED INP 22:21 → M MSPAV 23:54
PROVIDERS: ADMIT Preventive Medicine Undersea and Hyperbaric Medicine; ATTEND General Practice
DX: I82.422 Acute embolism and thrombosis of left iliac vein (principal); I26.99 Other pulmonary embolism without acute cor pulmonale; Z68.44 Body mass index [BMI] 60.0-69.9, adult; E66.01 Morbid (severe) obesity due to excess calories; D62 Acute posthemorrhagic anemia; J45.909 Unspecified asthma, uncomplicated; M06.9 Rheumatoid arthritis, unspecified; R26.89 Other abnormalities of gait and mobility; G89.29 Other chronic pain; Z98.84 Bariatric surgery status; Z88.0 Allergy status to penicillin; Z79.899 Other long term (current) drug therapy; Z79.52 Long term (current) use of systemic steroids; F11.90 Opioid use, unspecified, uncomplicated

== ENCOUNTER → 2023-10-25 | Outpatient (REF) | payer OTHER, MEDICARE ==
[~2023-10-25] MED LIST changes: +ELIQ5TAB; +ONDA-83 PO
[2023-10-25 12:55] LABS: BASO % 0.1 % (0.0-1.0); EOS % 0.5 % (0.0-3.0); HEMATOCRIT 34.5 % (36.0-47.0); HEMOGLOBIN 11.1 g/dl (12.0-15.5); LYMPH # 0.8 10^3/uL (1.5-5.0); LYMPH % 8.6 % (24.0-44.0); MEAN CORPUSCULAR HEMOGLOBIN 27.1 pg (27.0-33.0); MEAN CORPUSCULAR HGB CONC 32.2 g/dl (32.0-36.5); MEAN CORPUSCULAR VOLUME 84.1 fl (80.0-96.0); MONO # 0.3 10^3/uL (0.0-0.8); MONO % 3.1 % (2.0-8.0); NEUTROPHILS # 7.7 10^3/uL (1.5-8.5); NEUTROPHILS % 87.5 % (36.0-66.0); PLATELET COUNT, AUTOMATED 251 10^3/uL (150-450); WHITE BLOOD COUNT 8.8 10^3/uL (4.0-10.0)
[2023-10-25 13:00] LABS: ERYTHROCYTE SEDIMENTATION RATE 27 mm/hr (0-20)
[2023-10-25 13:24] LABS: ALBUMIN 3.8 G/DL (3.2-5.2); ALKALINE PHOSPHATASE 81 U/L (46-116); ALT/SGPT 26 U/L (7.0-40); AST/SGOT 13 U/L (<34); BILIRUBIN,TOTAL 0.6 MG/DL (0.3-1.2); BLOOD UREA NITROGEN 17 MG/DL (9-23); CARBON DIOXIDE LEVEL 26 MMOL/L (20-31); CHLORIDE LEVEL 105 MMOL/L (98-107); CREATININE FOR GFR 0.64 MG/DL (0.55-1.30); GLOMERULAR FILTRATION RATE > 60.0 (>58); GLUCOSE, FASTING 118 MG/DL (60-100); SODIUM LEVEL 140 MMOL/L (136-145); TOTAL PROTEIN 7.3 G/DL (5.7-8.2)
== END ==
LOC: M SFHCRHEU 12:48
PROVIDERS: ATTEND Internal Medicine Rheumatology
DX: M05.79 Rheumatoid arthritis with rheumatoid factor of multiple sites without organ or systems involvement (principal); R76.8 Other specified abnormal immunological findings in serum; R06.02 Shortness of breath; M35.00 Sjogren syndrome, unspecified; M15.9 Polyosteoarthritis, unspecified

== ENCOUNTER 2024-06-07 17:00 | Emergency (ER) | payer MEDICARE, OTHER ==
[~2024-06-07] VITALS: Ht 152.4 cm; Wt 108.4 kg
[~2024-06-07 17:00] MED LIST changes: -ADV250INH PO; +ADVA1AER9 PO; -LIDO1CRE2 TOP; +LIDO4CRE12 TOP
[2024-06-07 19:17] LABS: BASO % 0.3 % (0.0-1.0); EOS % 0.1 % (0.0-3.0); HEMATOCRIT 35.4 % (36.0-47.0); HEMOGLOBIN 10.9 g/dl (12.0-15.5); LYMPH # 0.9 10^3/uL (1.5-5.0); LYMPH % 11.4 % (24.0-44.0); MEAN CORPUSCULAR HEMOGLOBIN 24.1 pg (27.0-33.0); MEAN CORPUSCULAR HGB CONC 30.8 g/dl (32.0-36.5); MEAN CORPUSCULAR VOLUME 78.3 fl (80.0-96.0); MONO # 0.3 10^3/uL (0.0-0.8); MONO % 3.7 % (2.0-8.0); NEUTROPHILS # 6.3 10^3/uL (1.5-8.5); NEUTROPHILS % 84.1 % (36.0-66.0); PLATELET COUNT, AUTOMATED 273 10^3/uL (150-450); RED BLOOD COUNT 4.52 10^6/uL (4.00-5.40); WHITE BLOOD COUNT 7.5 10^3/uL (4.0-10.0)
[2024-06-07] MEDS: NS (Normal Saline) 0.9% 1,000 ML IV ONE (19:19)
[2024-06-07] MEDS: diphenhydrAMINE 50MG/ML VIAL IV ONE (19:19)
[2024-06-07 19:25] LABS: ERYTHROCYTE SEDIMENTATION RATE 31 mm/hr (0-20)
[2024-06-07 19:32] LABS: ALBUMIN 3.7 G/DL (3.2-5.2); ALKALINE PHOSPHATASE 104 U/L (35-104); ALT/SGPT 14 U/L (7.0-40); AST/SGOT < 8 U/L (<34); BILIRUBIN,TOTAL 0.2 MG/DL (0.3-1.2); BLOOD UREA NITROGEN 19 MG/DL (9-23); C REACTIVE PROTEIN QUANTITATIV 0.97 MG/DL (<1.0); CALCIUM LEVEL 8.5 MG/DL (8.5-10.1); CARBON DIOXIDE LEVEL 24 MMOL/L (20-31); CHLORIDE LEVEL 106 MMOL/L (98-107); CREATININE FOR GFR 0.64 MG/DL (0.55-1.30); GLOMERULAR FILTRATION RATE > 60.0 (>58); GLUCOSE, FASTING 102 MG/DL (60-100); POTASSIUM SERUM 4.8 MMOL/L (3.5-5.1); SODIUM LEVEL 142 MMOL/L (136-145); TOTAL PROTEIN 7.2 G/DL (5.7-8.2)
[2024-06-07] MEDS ORDERED: MUPI2OI TOP (19:47)
[2024-06-07 19:55] VITALS: BP 100/52; TEMP 96.8; O2SAT 100
== END 2024-06-07 20:01 | disposition home or self-care (01) ==
LOC: M ED 17:00
DX: A49.02 Methicillin resistant Staphylococcus aureus infection, unspecified site (principal); M06.9 Rheumatoid arthritis, unspecified; G43.909 Migraine, unspecified, not intractable, without status migrainosus; Z88.0 Allergy status to penicillin; Z79.01 Long term (current) use of anticoagulants; Z79.52 Long term (current) use of systemic steroids; Z79.83 Long term (current) use of bisphosphonates; Z79.899 Other long term (current) drug therapy
CPT/HCPCS: 80053; 83605; 85025; 85652; 86140; 96361; 96374; 99284; J1200

== ENCOUNTER → 2024-09-27 | Outpatient (REF) | payer OTHER ==
[~2024-09-27] MED LIST changes: +MUPI2OI TOP; +PREG-35 PO; -PREG100CA PO
[2024-09-27 19:43] LABS: IRON (FE) 20.0 UG/DL (50-170); PERCENT SATURATION 5.7 % (13.2-45.0)
== END ==
LOC: M LAB REF 17:20
PROVIDERS: ATTEND Physician Assistant
DX: D64.9 Anemia, unspecified (principal)

== ENCOUNTER → 2024-11-05 | Outpatient (CLI) | payer OTHER | LOC: M RAD 14:03 | PROVIDERS: ATTEND Student in an Organized Health Care Education/Training Program | DX: M54.50 Low back pain, unspecified (principal); G89.29 Other chronic pain; M79.641 Pain in right hand; M79.642 Pain in left hand; M25.511 Pain in right shoulder; M25.512 Pain in left shoulder; M25.562 Pain in left knee; M25.561 Pain in right knee; M17.0 Bilateral primary osteoarthritis of knee; M19.041 Primary osteoarthritis, right hand; M19.042 Primary osteoarthritis, left hand; M47.818 Spondylosis without myelopathy or radiculopathy, sacral and sacrococcygeal region; M19.011 Primary osteoarthritis, right shoulder; M19.012 Primary osteoarthritis, left shoulder ==

== ENCOUNTER → 2025-02-21 | Outpatient (CLI) | payer MEDICARE, MEDICAID ==
[~2025-02-21] MED LIST changes: -ZOLP5TAB PO; +ZOLP5TAB9 PO
[2025-02-21 15:13] LABS: PLATELET COUNT, AUTOMATED 260 10^3/uL (150-450)
[2025-02-21 15:25] LABS: ESTIMATED AVERAGE GLUCOSE 97.0 MG/DL (60-110)
[2025-02-21 15:49] LABS: IRON (FE) 14 UG/DL (50-170); TOTAL 25(OH) VITAMIN D 13.2 NG/ML (20.0-100.0)
[2025-02-21 15:51] LABS: PERCENT SATURATION 3.8 % (13.2-45.0)
[2025-02-21 15:52] LABS: ALT/SGPT 12 U/L (7.0-40); AST/SGOT 18 U/L (<34); CALCIUM LEVEL 8.4 MG/DL (8.5-10.1); CARBON DIOXIDE LEVEL 26 MMOL/L (20-31); CHLORIDE LEVEL 104 MMOL/L (98-107); CREATININE FOR GFR 0.63 MG/DL (0.55-1.30); GLOMERULAR FILTRATION RATE > 90.0 (>58); MAGNESIUM LEVEL 2.1 MG/DL (1.8-2.4); PHOSPHORUS LEVEL 3.7 MG/DL (2.5-4.9); POTASSIUM SERUM 4.2 MMOL/L (3.5-5.1); SODIUM LEVEL 142 MMOL/L (136-145)
[2025-02-21 15:53] LABS: VITAMIN B12 LEVEL 392 PG/ML (211-911)
== END ==
LOC: M LAB 14:21
PROVIDERS: ATTEND Student in an Organized Health Care Education/Training Program
DX: Z98.84 Bariatric surgery status (principal); Z86.39 Personal history of other endocrine, nutritional and metabolic disease; E66.01 Morbid (severe) obesity due to excess calories